=== PATIENT | female | born 1945 | race Caucasian/White ===

== ENCOUNTER → 2017-04-23 | Outpatient (CLI) | payer MEDICARE, OTHER ==
[~2017-04-23] MED LIST: CEPH250A PO; CLOP75 PO; ISOMON60ER PO; LISHYD1012 PO; NEBI5 PO; RANI150 PO; SIMV40 PO; SULTRIDS PO
== END ==
LOC: LAB EV 10:51
DX: N30.01 Acute cystitis with hematuria (principal)
CPT/HCPCS: 87086

== ENCOUNTER → 2019-02-06 | Outpatient (CLI) | payer MEDICARE, OTHER | END | disposition home or self-care (01) | LOC: LAB EV 13:43 → LAB SHORT 13:43 | DX: N39.0 Urinary tract infection, site not specified (principal) | CPT/HCPCS: 87086 ==

== ENCOUNTER → 2019-07-24 | Outpatient (CLI) | payer MEDICARE, OTHER | LOC: LAB SHORT 09:59 → LAB EV 09:59 | DX: N39.0 Urinary tract infection, site not specified (principal) | CPT/HCPCS: 87077; 87086; 87186 ==

== ENCOUNTER → 2020-01-13 | Outpatient (CLI) | payer MEDICARE, OTHER | END | disposition home or self-care (01) | LOC: LAB EV 15:19 → LAB SHORT 15:19 | DX: N12 Tubulo-interstitial nephritis, not specified as acute or chronic (principal) | CPT/HCPCS: 87077; 87086; 87186 ==

== ENCOUNTER → 2020-07-28 | Outpatient (CLI) | payer MEDICARE, OTHER | LOC: LAB SHORT 12:30 → LAB EV 12:30 | DX: N39.0 Urinary tract infection, site not specified (principal) | CPT/HCPCS: 87077; 87086; 87186 ==

== ENCOUNTER → 2020-10-15 | Outpatient (CLI) | payer MEDICARE, OTHER | END | disposition home or self-care (01) | LOC: LAB 11:03 → LAB SHORT 11:03 | DX: N39.0 Urinary tract infection, site not specified (principal) | CPT/HCPCS: 87077; 87086; 87186 ==

== ENCOUNTER → 2020-12-07 | Outpatient (CLI) | payer MEDICARE, OTHER | END | disposition home or self-care (01) | LOC: LAB 11:32 → LAB SHORT 11:32 | DX: N39.0 Urinary tract infection, site not specified (principal) | CPT/HCPCS: 87086 ==

== ENCOUNTER → 2020-12-25 | Outpatient (CLI) | payer MEDICARE, OTHER | LOC: LAB 09:38 → LAB SHORT 09:38 | DX: N39.0 Urinary tract infection, site not specified (principal); Z91.041 Radiographic dye allergy status | CPT/HCPCS: 87077; 87086; 87186 ==

== ENCOUNTER → 2021-01-16 | Outpatient (CLI) | payer MEDICARE, OTHER | END | disposition home or self-care (01) | LOC: LAB 10:18 → LAB SHORT 10:18 | DX: N39.0 Urinary tract infection, site not specified (principal) | CPT/HCPCS: 87077; 87086; 87186 ==

== ENCOUNTER → 2022-04-21 | Outpatient (CLI) | payer MEDICARE, OTHER | END | disposition home or self-care (01) | LOC: LAB 13:50 → LAB SHORT 13:50 | DX: N39.0 Urinary tract infection, site not specified (principal) | CPT/HCPCS: 87077; 87086; 87186 ==

== ENCOUNTER 2022-05-16 10:13 | Emergency (ER) | payer MEDICARE, OTHER ==
[~2022-05-16] VITALS: Ht 152.4 cm; Wt 52.2 kg
[2022-05-16 10:43] LABS: BASOPHILS ABSOLUTE AUTO 0.03 K/mm3 (0.00-0.23); BASOPHILS PERCENT AUTO 0 % (0-2); EOSINOPHILS ABSOLUTE AUTO 0.05 K/mm3 (0.00-0.68); EOSINOPHILS PERCENT AUTO 1 % (0-6); Hematocrit 40.4 % (33.0-51.0); Hemoglobin 13.7 g/dL (11.5-16.0); IMMATURE GRAN ABSOLUTE AUTO 0.02 K/mm3 (0.00-0.10); IMMATURE GRAN PERCENT AUTO 0 % (0-1); LYMPHOCYTES ABSOLUTE AUTO 1.83 K/mm3 (0.84-5.20); LYMPHOCYTES PERCENT AUTO 24 % (21-46); MONOCYTES ABSOLUTE AUTO 0.61 K/mm3 (0.16-1.47); MONOCYTES PERCENT AUTO 8 % (4-13); Mean Corpuscular HGB 31.3 pg (26.0-34.0); Mean Corpuscular HGB Conc 33.9 g/dL (31.5-36.5); Mean Corpuscular Volume 92 fL (80-100); Mean Platelet Volume 9.6 fL (9.1-12.4); NEUTROPHILS ABSOLUTE AUTO 4.98 K/mm3 (1.96-9.15); NEUTROPHILS PERCENT AUTO 66 % (41-73); Platelet Count 344 K/mm3 (150-400); RDW Coefficient Variation 13.5 % (11.7-14.2); RDW Standard Deviation 46.2 fL (35.1-46.3); Red Blood Cell Count 4.38 M/mm3 (3.80-5.20); White Blood Cell Count 7.52 K/mm3 (4.00-11.30)
[2022-05-16 10:56] LABS: Albumin, Blood 3.9 g/dL (3.4-5.0); Albumin/Globulin Ratio 1.2 (0.8-1.8); Bun/Creatinine Ratio 16.5 (12.0-20.0); Creatinine, Blood 0.73 mg/dL (0.40-1.00); Globulin, Blood 3.3 g/dL (2.2-4.0); Potassium, Blood 3.8 mmol/L (3.5-5.5); Total Protein, Blood 7.2 g/dL (6.4-8.2)
[2022-05-16] MEDS ORDERED: LOSARTAN-HCTZ1 EACH (10:56)
[2022-05-16 12:58] LABS: Source, Urine Voided
[2022-05-16 13:07] LABS: Blood, Urine 3+ (Neg); Glucose Qualitative, Urine Neg (Neg); Ketones, Urine 4+ (Neg); Leukocyte Esterase, Urine 2+ (Neg); Nitrite, Urine Pos (Neg); Protein, Urine 1+ (Neg); Urobilinogen, Urine 1+ (Normal); pH, Urine 6.5 (5.0-8.0)
[2022-05-16 13:19] LABS: Bilirubin, Urine 1+ (Neg)
[2022-05-16 13:20] LABS: Appearance, Urine Hazy (Clear); Color, Urine Yellow (P-Yellow)
[2022-05-16 13:21] LABS: Bacteria Mod /hpf; Hyaline Casts 0-2 /lpf (0-2); Mucus Mod (0-Heavy); Squamous Epithelial Cells Many /hpf (Few); Transitional Epithelial Cells Few /hpf (0-Rare)
== END 2022-05-16 14:07 | disposition home or self-care (01) ==
LOC: ER 10:13
PROVIDERS: Emergency Medicine
DX: R07.9 Chest pain, unspecified (principal); I25.10 Atherosclerotic heart disease of native coronary artery without angina pectoris; Z87.891 Personal history of nicotine dependence
CPT/HCPCS: 36415; 71046; 80053; 81001; 83690; 83880; 84484; 85025; 87086; 93005; 93010; 99285-25

== ENCOUNTER → 2022-05-18 | Outpatient (CLI) | payer MEDICARE, OTHER ==
[~2022-05-18] MED LIST changes: +LOSARTAN-HCTZ1 EACH
== END | disposition home or self-care (01) ==
LOC: LAB SHORT 17:51 → LAB 17:51
DX: N39.0 Urinary tract infection, site not specified (principal)
CPT/HCPCS: 87086

== ENCOUNTER → 2022-07-15 | Outpatient (CLI) | payer MEDICARE, OTHER | END | disposition home or self-care (01) | LOC: LAB 12:39 → LAB SHORT 12:39 | DX: R30.0 Dysuria (principal) | CPT/HCPCS: 87086 ==

== ENCOUNTER → 2022-11-01 | Outpatient (CLI) | payer MEDICARE, OTHER | LOC: LAB 14:56 → LAB SHORT 14:56 | DX: N39.0 Urinary tract infection, site not specified (principal) | CPT/HCPCS: 87086 ==

== ENCOUNTER → 2022-12-15 | Outpatient (CLI) | payer MEDICARE, OTHER ==
[2022-12-15 11:33] LABS: Source, Urine Clean Catch
[2022-12-15 11:49] LABS: Bacteria Few /hpf; Red Blood Cells, Urine 0-2 /hpf (0-2); Squamous Epithelial Cells Mod /hpf (Few); White Blood Cells, Urine 0-2 /hpf (0-5)
== END | disposition home or self-care (01) ==
LOC: LAB 11:32 → LAB SHORT 11:32
PROVIDERS: Family Medicine
DX: R30.0 Dysuria (principal)
CPT/HCPCS: 81015; 87086

== ENCOUNTER → 2023-02-01 | Outpatient (CLI) | payer MEDICARE, OTHER | LOC: LAB 18:30 → LAB SHORT 18:30 | DX: N39.0 Urinary tract infection, site not specified (principal) | CPT/HCPCS: 87086 ==

== ENCOUNTER → 2023-06-19 | Outpatient (CLI) | payer MEDICARE, OTHER | END | disposition home or self-care (01) | LOC: LAB 15:30 → LAB SHORT 15:30 | DX: N39.0 Urinary tract infection, site not specified (principal) | CPT/HCPCS: 87077; 87086; 87186 ==

== ENCOUNTER → 2023-06-27 | Outpatient (CLI) | payer MEDICARE, OTHER | END | disposition home or self-care (01) | LOC: LAB SHORT 11:14 | DX: N39.0 Urinary tract infection, site not specified (principal) | CPT/HCPCS: 87077; 87086; 87186 ==

== ENCOUNTER → 2023-10-01 | Outpatient (CLI) | payer MEDICARE, OTHER | END | disposition home or self-care (01) | LOC: LAB SHORT 11:15 → LAB 11:15 | DX: N39.0 Urinary tract infection, site not specified (principal) | CPT/HCPCS: 87077; 87086; 87186 ==

== ENCOUNTER → 2023-10-08 | Outpatient (CLI) | payer MEDICARE, OTHER ==
[2023-10-08 12:15] LABS: BASOPHILS ABSOLUTE AUTO 0.03 K/mm3 (0.00-0.23); BASOPHILS PERCENT AUTO 0 % (0-2); EOSINOPHILS ABSOLUTE AUTO 0.07 K/mm3 (0.00-0.68); EOSINOPHILS PERCENT AUTO 1 % (0-6); Hematocrit 32.2 % (33.0-51.0); IMMATURE GRAN ABSOLUTE AUTO 0.05 K/mm3 (0.00-0.10); IMMATURE GRAN PERCENT AUTO 1 % (0-1); LYMPHOCYTES ABSOLUTE AUTO 0.98 K/mm3 (0.84-5.20); LYMPHOCYTES PERCENT AUTO 9 % (21-46); MONOCYTES ABSOLUTE AUTO 0.95 K/mm3 (0.16-1.47); MONOCYTES PERCENT AUTO 9 % (4-13); Mean Corpuscular HGB Conc 34.2 g/dL (31.5-36.5); Mean Corpuscular Volume 94 fL (80-100); Mean Platelet Volume 8.7 fL (9.1-12.4); NEUTROPHILS ABSOLUTE AUTO 8.55 K/mm3 (1.96-9.15); NEUTROPHILS PERCENT AUTO 80 % (41-73); Platelet Count 325 K/mm3 (150-400); RDW Coefficient Variation 12.5 % (11.7-14.2); RDW Standard Deviation 42.5 fL (35.1-46.3); Red Blood Cell Count 3.44 M/mm3 (3.80-5.20); White Blood Cell Count 10.63 K/mm3 (4.00-11.30)
[2023-10-08 12:28] LABS: Albumin, Blood 3.1 g/dL (3.4-5.0); Albumin/Globulin Ratio 0.7 (0.8-1.8); Bilirubin, Total 0.6 mg/dL (0.1-1.0); Bun/Creatinine Ratio 19.3 (12.0-20.0); Calcium, Blood 9.3 mg/dL (8.5-10.1); Creatinine, Blood 0.83 mg/dL (0.40-1.00); Globulin, Blood 4.2 g/dL (2.2-4.0); Potassium, Blood 3.5 mmol/L (3.5-5.5); Total Protein, Blood 7.3 g/dL (6.4-8.2)
[2023-10-08 13:12] LABS: Source, Urine Clean Catch
[2023-10-08 13:47] LABS: Bacteria Many /hpf; Squamous Epithelial Cells Mod /hpf (Few)
== END | disposition home or self-care (01) ==
LOC: LAB 12:10 → LAB SHORT 12:10
PROVIDERS: Internal Medicine
DX: R10.32 Left lower quadrant pain (principal); N39.0 Urinary tract infection, site not specified
CPT/HCPCS: 80053; 81015; 85025

== ENCOUNTER → 2023-10-13 | Outpatient (CLI) | payer MEDICARE, OTHER | END | disposition home or self-care (01) | LOC: LAB 10:35 → LAB SHORT 10:35 | DX: N39.0 Urinary tract infection, site not specified (principal) | CPT/HCPCS: 87086 ==

== ENCOUNTER 2023-10-19 14:49 | Inpatient (IN) | payer MEDICARE, OTHER ==
[~2023-10-19] VITALS: Ht 152.4 cm; Wt 61.1 kg
[~2023-10-19 14:49] MED LIST changes: -LOSARTAN-HCTZ1 EACH; +LOSARTAN-HCTZ1 EACH PO
[2023-10-19] MEDS ORDERED: HYDCHL25 PO (15:24)
[2023-10-19] MEDS ORDERED: OMEPRAZOLE MAGN20 M1 PO (15:25)
[2023-10-19] MEDS ORDERED: GABA100 PO (15:26)
[2023-10-19] MEDS ORDERED: Metoclopramide HCl 5MG / ML 2ML Vial IV ONE (15:50)
[2023-10-19 15:51] LABS: Albumin, Blood 1.9 g/dL (3.4-5.0); Albumin/Globulin Ratio 0.4 (0.8-1.8); Bilirubin, Total 0.6 mg/dL (0.1-1.0); Bun/Creatinine Ratio 22.4 (12.0-20.0); Calcium, Blood 9.4 mg/dL (8.5-10.1); Creatinine, Blood 2.01 mg/dL (0.40-1.00); Globulin, Blood 4.3 g/dL (2.2-4.0); Potassium, Blood 3.7 mmol/L (3.5-5.5); Total Protein, Blood 6.2 g/dL (6.4-8.2)
[2023-10-19] MEDS ORDERED: DiphenhydrAMINE HCl 50 MG/ML 1ML Vial IV ONE (16:35)
[2023-10-19 17:04] LABS: Hemoglobin 12.3 g/dL (11.5-16.0); Mean Corpuscular HGB 30.8 pg (26.0-34.0); Mean Corpuscular HGB Conc 33.2 g/dL (31.5-36.5); Mean Corpuscular Volume 93 fL (80-100); Mean Platelet Volume 8.7 fL (9.1-12.4); Platelet Count 588 K/mm3 (150-400); RDW Coefficient Variation 13.1 % (11.7-14.2); RDW Standard Deviation 44.3 fL (35.1-46.3); Red Blood Cell Count 3.99 M/mm3 (3.80-5.20); White Blood Cell Count 17.26 K/mm3 (4.00-11.30)
[2023-10-19 17:35] LABS: Source, Urine Clean Catch
[2023-10-19 17:43] LABS: BAND PERCENT MAN 32 % (0-8); BASOPHILS PERCENT MAN 0 % (0-2); EOSINOPHILS PERCENT MAN 0 % (0-6); LYMPHOCYTES ABSOLUTE MAN 1.55 K/mm3 (0.84-5.20); LYMPHOCYTES PERCENT MAN 9 % (21-46); METAMYELOCYTE ABSOLUTE MAN 0.17 K/mm3 (0.00-0.00); METAMYELOCYTE PERCENT MAN 1 % (0-0); MONOCYTES ABSOLUTE MAN 1.38 K/mm3 (0.16-1.47); MONOCYTES PERCENT MAN 8 % (4-13); MYELOCYTE ABSOLUTE MAN 0.69 K/mm3 (0.00-0.00); MYELOCYTE PERCENT MAN 4 % (0-0); NEUTROPHILS ABSOLUTE MAN 13.46 K/mm3 (1.96-9.15); SEG NEUTROPHILS PERCENT MAN 46 % (41-73); TOTAL CELLS COUNTED 100
[2023-10-19 17:53] LABS: Appearance, Urine Hazy (Clear); Bilirubin, Urine Neg (Neg); Blood, Urine 5+ (Neg); Color, Urine Yellow (P-Yellow); Glucose Qualitative, Urine Neg (Neg); Ketones, Urine Neg (Neg); Leukocyte Esterase, Urine 1+ (Neg); Nitrite, Urine Neg (Neg); Protein, Urine 3+ (Neg); Urobilinogen, Urine NORM (Normal)
[2023-10-19 18:00] LABS: Bacteria Many /hpf; Renal Epithelial Rare /hpf (0-Rare); Squamous Epithelial Cells Many /hpf (Few)
[2023-10-19 18:01] LABS: Hyaline Casts 0-2 /lpf (0-2); Yeast/Fungi Urine Few /hpf
[2023-10-19] MEDS ORDERED: HYDROmorphone HCl/Pf 1MG SYR IV PRN (18:10)
[2023-10-19] MEDS ORDERED: Piperacillin/Tazobactam Sod 3.375 GM in NS 100 ML IV ONE (18:10)
[2023-10-19] MEDS ORDERED: Pantoprazole Sodium 40 MG Injection IV ONE (18:25)
[2023-10-19 18:45] VITALS: BP 94/66
[2023-10-19] MEDS ORDERED: NS 1,000 ML IV SCH (18:55)
[2023-10-19] MEDS ORDERED: Lactated Ringer's 1,000 ML IV ONE ×2 (19:10→19:59)
[2023-10-19] MEDS ORDERED: Bupivacaine 0.5% HCl 5 MG/ML 30MLVIAL ONE (19:29)
[2023-10-19] MEDS ORDERED: FentaNYL Citrate 50 MCG/ML 2 ML Injection ONE (20:04)
[2023-10-19] MEDS ORDERED: propofoL 20 ML IV ONE (20:04)
[2023-10-19] MEDS ORDERED: Phenylephrine HCl 100 MCG/ML-NS 10MLSYR (1MG/10ML) ONE ×3 (20:05→21:09)
[2023-10-19] MEDS ORDERED: Rocuronium Bromide 10 MG/ML 5ML Injection IV ONE ×2 (20:05→21:36)
[2023-10-19] MEDS ORDERED: Phenylephrine HCl 10mg/ml 1 ml Vial ONE (21:03)
[2023-10-19] MEDS ORDERED: Dexamethasone Sod Phos 10 MG/ML 1ML VIAL ONE (23:34)
[2023-10-19] MEDS ORDERED: Ondansetron HCl 2 MG / ML 2ML Vial ONE (23:34)
[2023-10-19] MEDS ORDERED: Midazolam HCl 1MG / ML 2ML Vial ONE (23:36)
[2023-10-20] VITALS (93 sets, daily range): BP systolic 78–145; BP diastolic 60–99
[2023-10-20] MEDS ORDERED: Vasopressin 20 UNITS in NS 100 ML IV SCH (00:15)
[2023-10-20] MEDS ORDERED: propofoL 100 ML IV SCH ×2 (00:20→00:35)
[2023-10-20] MEDS ORDERED: Lactated Ringer's 1,000 ML IV SCH (00:50)
[2023-10-20] MEDS ORDERED: FentaNYL Citrate 50 MCG/ML 2 ML Injection IV PRN ×2 (00:50→15:40)
[2023-10-20] MEDS ORDERED: HYDROCODONE-AC1 EA19 PO (01:01)
[2023-10-20] MEDS ORDERED: Cetylpyridinium Chloride 1 EA MISC MT SCH ×2 (01:05→08:40)
[2023-10-20] MEDS ORDERED: Folic Acid 1 MG in NS 50 ML IV SCH (02:00)
[2023-10-20] MEDS ORDERED: Thiamine HCl 100 MG in NS 50 ML IV SCH (02:00)
--- NOTE | 2023-10-20 02:00 | NUR ---
PT ARRIVES TO ROOM ICU 8 FROM OR AT 0005 S/P ABDOMINAL SURGERY FOR PERFORATED BOWEL. PT HAS NEW COLOSTOMY, PIKO DRESSING, AND JUSTICE DRAIN TO ABDOMEN. BEDSIDE REPORT RECEIVED. PT'S DAUGHTER BROUGHT TO ROOM AFTER PT WAS SETTLED. TEACHING DONE ON PT'S STATUS, BEING INTUBATED, CURRENT STATUS, AND POST OP CONDITION. ALLOWED FOR QUESTIONS. PT'S DAUGHTER PARTICIPATES IN ADMISSION INTERVIEW. DAUGHTER VOICES THAT SHE FEELS THAT SHE UNDERSTANDS PT'S POOR PROGNOSIS AND THAT FAMILY WILL BE COMING UP FROM [place]. DOES STATE THAT PT IS PRIMARY CAREGIVER FOR PT'S THAT HAS DEMENTIA. FAMILY WILL WORK ON GETTING CARE ARRANGE FOR . WILL REVIEW CHART AND PLAN OF CARE FOR THIS PT.
[2023-10-20] MEDS ORDERED: NS 250 ML IV PRN (02:20)
[2023-10-20 02:40] LABS: Base Excess Venous 2.7 mmol/L; PCO2 Venous 46.9 mmHg (38-42); pH Blood Venous 7.38 (7.34-7.37)
[2023-10-20 02:44] LABS: Hematocrit 33.2 % (33.0-51.0); Hemoglobin 11.4 g/dL (11.5-16.0); Mean Corpuscular HGB 31.7 pg (26.0-34.0); Mean Corpuscular HGB Conc 34.3 g/dL (31.5-36.5); Mean Corpuscular Volume 92 fL (80-100); Mean Platelet Volume 8.5 fL (9.1-12.4); Platelet Count 485 K/mm3 (150-400); RDW Coefficient Variation 13.2 % (11.7-14.2); RDW Standard Deviation 44.9 fL (35.1-46.3); White Blood Cell Count 10.23 K/mm3 (4.00-11.30)
[2023-10-20 03:05] LABS: Magnesium, Blood 1.9 mg/dL (1.6-2.4)
[2023-10-20 03:06] LABS: Albumin, Blood 1.2 g/dL (3.4-5.0); Albumin/Globulin Ratio 0.4 (0.8-1.8); Bilirubin, Total 0.5 mg/dL (0.1-1.0); Bun/Creatinine Ratio 30.5 (12.0-20.0); Calcium, Blood 7.9 mg/dL (8.5-10.1); Creatinine, Blood 1.54 mg/dL (0.40-1.00); Total Protein, Blood 4.2 g/dL (6.4-8.2)
[2023-10-20 03:48] LABS: BAND PERCENT MAN 48 % (0-8); BASOPHILS PERCENT MAN 0 % (0-2); EOSINOPHILS PERCENT MAN 0 % (0-6); LYMPHOCYTES % ATYPICAL MANUAL 1 % (0-0); LYMPHOCYTES ABSOLUTE MAN 1.02 K/mm3 (0.84-5.20); LYMPHOCYTES PERCENT MAN 9 % (21-46); METAMYELOCYTE ABSOLUTE MAN 0.71 K/mm3 (0.00-0.00); METAMYELOCYTE PERCENT MAN 7 % (0-0); MONOCYTES PERCENT MAN 4 % (4-13); MYELOCYTE PERCENT MAN 3 % (0-0); NEUTROPHILS ABSOLUTE MAN 7.77 K/mm3 (1.96-9.15); SEG NEUTROPHILS PERCENT MAN 28 % (41-73); TOTAL CELLS COUNTED 100
[2023-10-20] MEDS ORDERED: Hydrogen Peroxide 1.5 % Solution MT SCH (04:00)
--- NOTE | 2023-10-20 05:53 | NUR ---
DAUGHTER HAS GONE HOME FOR THE NIGHT. PT HAS REMAINED OFF SEDATION, AND HAS BEEN MEDICATED ONCE WITH 25 MCG'S FENTANYL FOR ASSUMED PAIN WITH TURNS. PT MOSTLY RIDES COMPLIANT WITH VENT. ONLY WITH TURNS DOES SHE OVERBREATH VENT. THIS OCCURS FOR ONLY SHORT PERIOD. JUSTICE DRAINS 60 ML SEROUSAINGEOUS DRAINAGE. NGT TO LIWS. THICK DARK OUTPUT. DR SCHILLING HAS REQUESTED THAT THE NGT NO BE CHANGED OUT FOR OGT AT THIS TIME. WILL CONTINUE TO MONITOR PT, AND WILL REPORT OFF TO ONCOMING RN.
[2023-10-20] MEDS ORDERED: Pantoprazole Sodium 40 MG Injection IV SCH (06:00)
[2023-10-20] MEDS ORDERED: Piperacillin/Tazobactam Sod 4.5 GM in NS 100 ML IV SCH (09:00)
--- NOTE | 2023-10-20 10:50 | NUR ---
Spiritual Care Consult ordered by Dr Kelsi Bowens Pt. is resting and mostly not responsive. Pts. Spouse and daughter are both in the ICU waiting room. The daughter was working with our care coordinators, and this manufacturing executive met with the Spouse. The spouse displayed some evidence of mild dementia, but is overall pleasant. This manufacturing executive facilitated a life review with the spouse who was able to verbalize their life together. Through theraputic listening and calming presence a measure of rapport is established. When Pts. daughter entered the conversation, she verbalized some of the circumstances that brought the Pt. into the hospital. Daughter verbalized that the Pt. was raised in a taoism tradition, but the Pt. and spouse did not practice their eliz over the years. This manufacturing executive verbalized our desire to care and support the family. Both daughter and spouse verbalized gratitude for the spiritual care visit.
[2023-10-20] MEDS ORDERED: ONDA4ODT MM (15:04)
[2023-10-20] MEDS ORDERED: METR500 PO (15:05)
[2023-10-20] MEDS ORDERED: CEFP200 PO (15:05)
[2023-10-20] MEDS ORDERED: Isosorbide Mono30 MG PO (15:06)
[2023-10-20] MEDS ORDERED: ACET500 PO (15:07)
[2023-10-20] MEDS ORDERED: ADVIL PM (15:07)
[2023-10-20] MEDS ORDERED: POTASSIUM GLUCONATE (15:08)
[2023-10-20] MEDS ORDERED: Aspir 8181 MG PO (15:08)
[2023-10-20] MEDS ORDERED: [UNRECOGNIZED DRUG - OTHER] PO (15:09)
[2023-10-20] MEDS ORDERED: NITR.4SL SL (15:09)
--- NOTE | 2023-10-20 16:06 | NUR ---
SUPPORTIVE VISIT FOR FAMILY MEMEBERS GENTLE EDUCATION WITH PT'S SPOUSE, MICHELLE RE: PT'S CURRENT CARE NEEDS. ASSISTED SPOUSE WITH HOLDING PT'S HAND AND ENCOURAGED FAMILY TO TALK TO PATIENT. DTRPAULA APPEARS TO HAVE A GRASP ON PT'S PROGNOSIS. PC CARE TO REMAIN AVAILABLE NEEDED.
--- NOTE | 2023-10-20 17:44 | NUR ---
SHIFT SUMMARY PATIENT REMAINS INTUBATED, SEDATION STARTED THIS SHIFT TO ASSIST WITH PAIN CONTROL ON TOP OF FENTANYL INCREASED TO 25-50 MCG Q1H PRN. PROPOFOL @ 10 MCG/KG/MIN, LEVOPHED @ 5MCG/MIN, LR @ 150ML/HR. PATIENT ATTEMPTS TO OPEN EYES AND CAN NOD HEAD "YES/NO" TO SIMPLE QUESTIONS. LUNG SOUNDS ARE CLEAR AND VENT SETTINGS ARE AC/VC 16/310/5/35%. SPO2 MID TO HIGH 90'S. ETCO2 HIGH 20'S. BP STABLE WITH MAPS GREATER THAN 65. SHARLA DRESSINGS REMAINS C/D/I. MINIMAL OUTPUT FROM JUSTICE DRAIN. MINIMAL OUTPUT FROM COLOSTOMY. DAUGTHER AND GRANDDAUGHTER AT BEDSIDE T/O SHIFT. NO OTHER CHANGES THIS SHIFT.
[2023-10-20] MEDS ORDERED: Atorvastatin 10 MG Tab PO SCH (18:00)
--- NOTE | 2023-10-20 19:36 | NUR ---
ASSUMED CARE OF PT AT 1900. REPORT RECEIVED AT BEDSIDE. PT PRESENTS IN BED. INTUBATED - AC 16, Tv 310, 35 PERCENT FIO2, PEEP 5.0. PT MAINTAINS SATURATION > 90 PERCENT. PT'S DAUGHTER PAULA IN ROOM. PARTICIPATES IN BEDSIDE REPORT. PT ON AT PROPOFOL AT 10 MCG'S/KG/MIN. PUPILS CHECKED WHICH REVEALS APPROX 2 MM PERRLA. WHEN VERBALLY ADDRESSING PT, NO NOTEABLE RESPONSE. PT HAS, PER REPORT, RESPONDED SOME TO CUES. DAUGHTER STATES THAT WHEN SHE HAD FAMILY ON TELEPHONE WITH SPEAKER PHONE, PT DID RESPOND TO VOICE. NO S/S PAIN OR DISTRESS. COLOSTOMY WITHOUT DRAINAGE, JUSTICE WITH SERRSONGEOUS DRAINAGE. PIKO DRESSING INTACT. WILL REVIEW CHART AND PLAN OF CARE FOR THIS PT.
--- NOTE | 2023-10-20 21:52 | NUR ---
PT MEDICATED WITH 25 MCG'S FENTANYL. PT WAS ABLE TO NOD HER HEAD 'YES' TO IF SHE WAS HAVING PAIN. AFTER MEDICATION, PT RELAXED AND COMPLIANT WITH VENT. LEVOPHED HAS BEEN DECREASED TO 2 MCG'S. WILL PROCEDE WITH PLAN TO WEAN TO OFF ABLE.
[2023-10-21] VITALS (45 sets, daily range): BP systolic 98–146; BP diastolic 58–90
--- NOTE | 2023-10-21 05:50 | NUR ---
SPONTANEOUS BREATHING TRIAL DONE THIS MORNING BY DR SIMMS. PT WAS ABLE TO WEAKLY FOLLOW SOME COMMANDS. WOULD NOD HER HEAD 'YES' AND 'NO' TO QUESTIONS. DR SIMMS DID ASK IF PT FELT SHE WAS READY TO BE EXTUBATED. PT NODS HER HEAD 'NO' TO THIS. PT REMAINS WITH SATURATION > 90 PERCENT. LEVOPHED HAS BEEN TITRATED TO OFF. PT MAINTAINS MAP AT > 65. WILL CONTINUE TO MONITOR AND WILL REPORT OFF TO ONCOMING RN.
[2023-10-21 07:00] LABS: Hematocrit 25.1 % (33.0-51.0); Hemoglobin 8.6 g/dL (11.5-16.0); Mean Corpuscular HGB 31.3 pg (26.0-34.0); Mean Corpuscular HGB Conc 34.3 g/dL (31.5-36.5); Mean Corpuscular Volume 91 fL (80-100); Mean Platelet Volume 8.9 fL (9.1-12.4); Platelet Count 286 K/mm3 (150-400); RDW Coefficient Variation 13.5 % (11.7-14.2); RDW Standard Deviation 44.4 fL (35.1-46.3); Red Blood Cell Count 2.75 M/mm3 (3.80-5.20); White Blood Cell Count 21.49 K/mm3 (4.00-11.30)
[2023-10-21 07:19] LABS: Bun/Creatinine Ratio 25.1 (12.0-20.0); Calcium, Blood 7.1 mg/dL (8.5-10.1); Creatinine, Blood 1.91 mg/dL (0.40-1.00); Potassium, Blood 3.5 mmol/L (3.5-5.5)
[2023-10-21 07:43] LABS: BAND PERCENT MAN 29 % (0-8); BASOPHILS PERCENT MAN 0 % (0-2); EOSINOPHILS PERCENT MAN 0 % (0-6); LYMPHOCYTES ABSOLUTE MAN 0.42 K/mm3 (0.84-5.20); LYMPHOCYTES PERCENT MAN 2 % (21-46); METAMYELOCYTE ABSOLUTE MAN 0.21 K/mm3 (0.00-0.00); METAMYELOCYTE PERCENT MAN 1 % (0-0); MONOCYTES ABSOLUTE MAN 0.21 K/mm3 (0.16-1.47); MONOCYTES PERCENT MAN 1 % (4-13); NEUTROPHILS ABSOLUTE MAN 20.63 K/mm3 (1.96-9.15); SEG NEUTROPHILS PERCENT MAN 67 % (41-73); TOTAL CELLS COUNTED 100
[2023-10-21] MEDS ORDERED: LORazepam 2 MG/ML 1ML Injection IV PRN (11:00)
[2023-10-21] MEDS ORDERED: Potassium Chl 20MEQ/Water100ML 100 ML IV STA (11:12)
--- NOTE | 2023-10-21 11:45 | NUR ---
"Spiritual Care Visit | Family Support Family of Pt is sitting in the hallway when this substance abuse nurse arrived. After introductions this substance abuse nurse went into the ICU lounge and had a lengthy visit with the Pts. spouse. Though the spouse displayed evidence of memory deficits, this substance abuse nurse gave him a great deal of time to formulate his thoughts, and share memories. Listen with patience, empathy, and a calming interest. Pt. displays evidence of having a vivid memory of when the Pt. collapsed at home. Considered matters of eliz and belief, and SPouse verbalized the role his grandmother had at instilling eliz in the family. Prayed with the Spouse. Spouse verbalized gratitude for the spiritual care visit, and welcomed this substance abuse nurse to visit again. Family in the hallway also verbalizedgratitude for the time spent with Pts. spouse."
--- NOTE | 2023-10-21 17:49 | NUR ---
SUMMARY PT INTUBATED, LIGHT SEDATION. ABLE TO NOD YES AND NO TO QUESTIONS APPROPRIATELY AND FOLLOWS COMMANDS. PT HAS BRUISE TO R SIDE OF FOREHEAD FROM A FALL AT HOME PRIOR TO ADMIT. CT HEAD DONE TODAY AND RESULTS GIVEN TO FAMILY BY DR. WILSON. PT WAS TAKEN OFF SEDATION FOR SBT, DID NOT PASS. PLACED BACK ON SEDATION. NG TO LIS WITH GREEN BILE OUTPUT. JUSTICE DRAIN TO R ABD WITH SEROSANG DRAINAGE. NO OUTPUT FROM COLOSTOMY AND SHARLA VAC STILL INTACT. OFF LEVOPHED ALL DAY. NO OTHER CHANGES.
--- NOTE | 2023-10-21 19:44 | NUR ---
ASSUMED CARE OF PT AT 1900. REPORT RECEIVED AT BEDSIDE. PT'S FAMILY AT BEDSIDE, AND PARTICIPATES IN BEDSIDE REPORT. PT PRESENTS IN BED. RESTING. DOES NO OPEN EYES DURING REPORT. NO APPARENT DISTRESS. WILL REVIEW CHART AND PLAN OF CARE FOR THIS PT.
[2023-10-22] VITALS (72 sets, daily range): BP systolic 74–152; BP diastolic 50–77
--- NOTE | 2023-10-22 02:49 | NUR ---
HAVE BEEN TITRATING DOWN LEVOPHED. VASOPRESSIN HAS BEEN STOPPED. PT MAP > 65 CONSISTENTLY. FULL BEDBATH WAS DONE. PT TOLERATES THIS WELL.
[2023-10-22 05:41] LABS: Hematocrit 25.5 % (33.0-51.0); Hemoglobin 8.5 g/dL (11.5-16.0); Mean Corpuscular HGB 31.3 pg (26.0-34.0); Mean Corpuscular HGB Conc 33.3 g/dL (31.5-36.5); Mean Corpuscular Volume 94 fL (80-100); Mean Platelet Volume 8.7 fL (9.1-12.4); Platelet Count 242 K/mm3 (150-400); RDW Coefficient Variation 13.7 % (11.7-14.2); RDW Standard Deviation 46.5 fL (35.1-46.3); Red Blood Cell Count 2.72 M/mm3 (3.80-5.20)
[2023-10-22 06:10] LABS: BAND PERCENT MAN 6 % (0-8); BASOPHILS PERCENT MAN 0 % (0-2); EOSINOPHILS PERCENT MAN 0 % (0-6); LYMPHOCYTES ABSOLUTE MAN 1.33 K/mm3 (0.84-5.20); LYMPHOCYTES PERCENT MAN 5 % (21-46); MONOCYTES PERCENT MAN 3 % (4-13); MYELOCYTE ABSOLUTE MAN 0.53 K/mm3 (0.00-0.00); MYELOCYTE PERCENT MAN 2 % (0-0); NEUTROPHILS ABSOLUTE MAN 23.76 K/mm3 (1.96-9.15); PLASMA CELL ABSOLUTE MAN 0.26 K/mm3 (0.00-0.00); PLASMA CELLS PERCENT MAN 1 % (0-0); SEG NEUTROPHILS PERCENT MAN 83 % (41-73); TOTAL CELLS COUNTED 100
[2023-10-22 06:14] LABS: Bun/Creatinine Ratio 27.4 (12.0-20.0); Calcium, Blood 7.4 mg/dL (8.5-10.1); Creatinine, Blood 1.64 mg/dL (0.40-1.00); Magnesium, Blood 2.4 mg/dL (1.6-2.4); Phosphorus, Blood 3.8 mg/dL (2.5-4.9); Potassium, Blood 3.1 mmol/L (3.5-5.5)
[2023-10-22] MEDS ORDERED: Potassium Chl 20MEQ/Water100ML 100 ML IV SCH (06:35)
[2023-10-22] MEDS ORDERED: Piperacillin/Tazobactam Sod 4.5 GM in NS 100 ML IV SCH (09:00)
--- NOTE | 2023-10-22 17:43 | NUR ---
SHIFT SUMMARY PT REMAINS INTUBATED AND SEDATED. PT WITH OVER 6 HOURS ON SBT WITH SEDATION OFF THIS SHIFT. PT SWITCHED BACK TO AC 16, TV 310, PEEP 5, FIO2 35% THIS AFTERNOON. PT HAS REMAINED ALERT, AND ABLE TO NOD HEAD APPROPRIATELY TO QUESTIONS. PT MED WITH FENTANYL PRN FOR ABD PAIN THIS SHIFT. CENTRAL LINE TO RSC C/D/I WITH NS INFUSING TKO AND PROPOFOL AT 25 MCG/KG/MIN. NGT REMAINS IN PLACE. TF STARTED PER DR SCHILLING THIS MORNING. PT WITH MIDLINE ABD INCISION WITH SHARLA VAC C/D/I. JUSTICE TO RIGHT ABD WITH SMALL AMOUNT OF PINK/CLEAR OUTPUT NOTED. COLOSTOMY TO L ABD PINK AND WITH BROWN, FIRM, PELLETS OF STOOL OUTPUT NOTED. PACE REMAINS IN PLACE WITH MINIMAL AMOUNT OF YELLOW URINE OUTPUT NOTED. SBW RESTRAINTS REMAIN IN PLACE. VITAL SIGNS STABLE. MULTIPLE FAMILY MEMBERS IN AND OUT THIS SHIFT. WILL CONTINUE TO MONITOR AND REPORT OFF TO ONCOMING RN.
[2023-10-22] MEDS ORDERED: Atorvastatin 10 MG Tab PT SCH (18:00)
[2023-10-23] VITALS (42 sets, daily range): BP systolic 108–140; BP diastolic 60–93
[2023-10-23 05:07] LABS: Hematocrit 24.9 % (33.0-51.0); Hemoglobin 8.3 g/dL (11.5-16.0); Mean Corpuscular HGB 31.1 pg (26.0-34.0); Mean Corpuscular HGB Conc 33.3 g/dL (31.5-36.5); Mean Corpuscular Volume 93 fL (80-100); Platelet Count 237 K/mm3 (150-400); RDW Coefficient Variation 13.8 % (11.7-14.2); RDW Standard Deviation 47.3 fL (35.1-46.3); Red Blood Cell Count 2.67 M/mm3 (3.80-5.20); White Blood Cell Count 24.92 K/mm3 (4.00-11.30)
[2023-10-23 05:39] LABS: Albumin, Blood 1.1 g/dL (3.4-5.0); Anion Gap 11 mmol/L (3-11); Blood Urea Nitrogen 37 mg/dL (8-24); Bun/Creatinine Ratio 35.6 (12.0-20.0); CO2, Blood 24 mmol/L (21-32); Calcium, Blood 7.3 mg/dL (8.5-10.1); Chloride, Blood 106 mmol/L (98-108); Creatinine, Blood 1.04 mg/dL (0.40-1.00); Glomerular Filtration Rate 55 (60-); Glucose, Blood 129 mg/dL (70-99); Magnesium, Blood 2.4 mg/dL (1.6-2.4); Phosphorus, Blood 2.3 mg/dL (2.5-4.9); Potassium, Blood 3.3 mmol/L (3.5-5.5); Sodium, Blood 138 mmol/L (136-145)
[2023-10-23 05:42] LABS: BAND PERCENT MAN 2 % (0-8); BASOPHILS PERCENT MAN 0 % (0-2); EOSINOPHILS PERCENT MAN 0 % (0-6); LYMPHOCYTES ABSOLUTE MAN 1.49 K/mm3 (0.84-5.20); LYMPHOCYTES PERCENT MAN 6 % (21-46); MONOCYTES ABSOLUTE MAN 0.74 K/mm3 (0.16-1.47); MONOCYTES PERCENT MAN 3 % (4-13); MYELOCYTE ABSOLUTE MAN 0.24 K/mm3 (0.00-0.00); MYELOCYTE PERCENT MAN 1 % (0-0); NEUTROPHILS ABSOLUTE MAN 22.17 K/mm3 (1.96-9.15); PLASMA CELL ABSOLUTE MAN 0.24 K/mm3 (0.00-0.00); PLASMA CELLS PERCENT MAN 1 % (0-0); SEG NEUTROPHILS PERCENT MAN 87 % (41-73); TOTAL CELLS COUNTED 100
[2023-10-23] MEDS ORDERED: Potassium Phosphate Dibasic 20 MM in Dextrose 5% 500 ML IV ONE (06:25)
--- NOTE | 2023-10-23 06:31 | NUR ---
SHIFT SUMMERY PT HAS HAD NO ACUTE CHANGES SINCE EXTUBATION. VS STABLE AT THIS TIME. BIPAP SETTING UNCHANGED
--- NOTE | 2023-10-23 06:43 | NUR ---
SHIFT SUMMERY PT HAS HAD NO ACUTE CHANGES OVERNIGHT. PROPOFOL INFUSING FOR SEDATION-SEE FLOWSHEET. PT HAS BEEN AFEBRILE. COLOSTOMY STOMA BEEFY RED WITH LARGE AMOUNT OF FORMED BROWN STOOL OVERNIGHT. ABD DRESSING C/D/I. ETT INTACT AND PATENT TO THE VENT. JUSTICE DRAIN W/NO MEASURABLE OUTPUT. TF INFUSING W/OUT DIFFICULTY. SR ON THE SUIT ATTENDANT. BP WNL.
[2023-10-23] MEDS ORDERED: Furosemide 10 MG/ML 4ML Vial IV ONE (08:30)
[2023-10-23] MEDS ORDERED: Multivitamins-Minerals Liquid 15 ML Oral Syringe PT SCH (12:50)
[2023-10-23] MEDS ORDERED: Potassium Chloride 20 MEQ TabCR PO ONE (13:00)
[2023-10-23] MEDS ORDERED: HYDROmorphone HCl/Pf 1MG SYR IV PRN (15:10)
[2023-10-23 15:21] LABS: Magnesium, Blood 2.2 mg/dL (1.6-2.4); Phosphorus, Blood 3.6 mg/dL (2.5-4.9)
[2023-10-23] MEDS ORDERED: Potassium Chl 20MEQ/Water100ML 100 ML IV SCH (16:50)
--- NOTE | 2023-10-23 17:06 | NUR ---
SHIFT SUMMARY PT EXTUBATED THIS SHIFT AFTER SUCCESSFUL SBT THIS MORNING. PT INITIALLY PLACED ON 8L O2 NC, THEN TITRATED DOWN TO 4L O2 NC THIS AFTERNOON. PT HAS CONTINUED TO COMPLAIN OF ABD PAIN THROUGHOUT THE SHIFT. PT MED WITH FENTANYL PRN PER EMAR AND DILAUDID PER EMAR THIS AFTERNOON. PT WITH GREATER RELIEF FROM DILAUDID THIS AFTERNOON. PT IS ALERT AND ORIENTED WHEN AWAKE. PT FOLLOWS COMMANDS APPROPRIATELY. NGT REMAINS IN PLACE WITH TF INFUSING AT GOAL RATE. CENTRAL LINE TO RIJ C/D/I WITH NS INFUSING TKO. MIDLINE ABD INCISION WITH SHARLA REMAINS C/D/I. JUSTICE DRAIN TO RIGHT ABDOMEN WITH SMALL AMOUNT OF SEROUSANGUINEOUS OUTPUT NOTED. COLOSTOMY TO LEFT ABD PINK AND WITH INCREASING AMOUNT OF SOFT STOOL OUTPUT NOTED. PACE REMAIN IN PLACE WITH LARGE AMOUNT OF CLEAR YELLOW OUTPUT S/P LASIX THIS SHIFT. VITAL SIGNS REMAIN STABLE. MULTIPLE FAMILY MEMBERS IN AND OUT THROUGHOUT THIS SHIFT. WILL CONTINUE TO MONITOR AND REPORT OFF TO ONCOMING RN.
[2023-10-23] MEDS ORDERED: LORazepam 2 MG/ML 1ML Injection IV PRN (18:35)
--- NOTE | 2023-10-23 20:52 | NUR ---
ASSUMED CARE OF PATIENT AT 1900. REPORT RECEIVED FROM RENETTA BUCKLEY. PT SLEEPING UPRIGHT IN BED. ON 4LPM O2 VIA NC WITH SATURATION OF 98%. NGT IN PLACE. SHARLA TO MIDLINE IS C/D/I, JUSTICE DRAIN TO R ABDOMEN WITH SMALL AMOUNT OF SEROSANGINOUS OUTPUT. COLOSTOMY TO LEFT ABD VISUALIZED WITH SOFT STOOL OUTPUT. PACE IN PLACE DRAINING CLEAR YELLOW URINE TO GRAVITY. RIJ VISUALIZED, DRESSING C/D/I. INFUSING TKO. NO ACUTE NEEDS IDENTIFIED AT THIS TIME. SEE SHIFT ASSESSMENT FOR FULL DETAILS.
[2023-10-23 21:47] LABS: Magnesium, Blood 2.1 mg/dL (1.6-2.4)
--- NOTE | 2023-10-23 22:44 | NUR ---
VERBAL FROM PT'S DAUGHTER, PAULA, TO REINTUBATE AT APPROXIMATELY 2230 PT O2 SATURATED TO LOW 80'S. ENTERED PT ROOM AND PERFORMED SUCTION, ENCOURAGED PT TO COUGH, AND TAKE DEEP BREATHS TO RECEIVE OXYGEN VIA NC. NON REBREATHER PLACED AT 15 LPM WITH INCREASE IN O2 TO LOW 90'S. SPOKE WITH PT'S DAUGHTER WHO STATED THAT SHE IS OKAY WITH REINTUBATION IF NECESSARY. UPDATED DR. ALVES WHO STATED TO TRY BIPAP FIRST. RT AT BESIDE, ABLE TO HAVE SUCCESSFUL SUCTION AND IMPROVEMENT IN 02 SATURATION TO 92% ON 8LPM VIA OXIMASK. DAUGHTER PAULA UPDATED AGAIN AND CONTINUED TO EXPRESS THAT SHE IS OKAY WITH RE-INTUBATION NECESSARY.
[2023-10-24] VITALS (35 sets, daily range): BP systolic 110–157; BP diastolic 56–93
[2023-10-24 04:21] LABS: Hematocrit 24.6 % (33.0-51.0); Hemoglobin 8.4 g/dL (11.5-16.0); Mean Corpuscular HGB 31.6 pg (26.0-34.0); Mean Corpuscular HGB Conc 34.1 g/dL (31.5-36.5); Mean Corpuscular Volume 93 fL (80-100); Mean Platelet Volume 9.7 fL (9.1-12.4); Platelet Count 258 K/mm3 (150-400); RDW Coefficient Variation 13.8 % (11.7-14.2); RDW Standard Deviation 46.8 fL (35.1-46.3); Red Blood Cell Count 2.66 M/mm3 (3.80-5.20); White Blood Cell Count 26.14 K/mm3 (4.00-11.30)
[2023-10-24 04:40] LABS: Albumin, Blood 1.2 g/dL (3.4-5.0); Albumin/Globulin Ratio 0.3 (0.8-1.8); Bilirubin, Total 0.6 mg/dL (0.1-1.0); Bun/Creatinine Ratio 35.9 (12.0-20.0); Calcium, Blood 7.4 mg/dL (8.5-10.1); Creatinine, Blood 0.81 mg/dL (0.40-1.00); Globulin, Blood 3.7 g/dL (2.2-4.0); Magnesium, Blood 2.1 mg/dL (1.6-2.4); Phosphorus, Blood 2.1 mg/dL (2.5-4.9); Potassium, Blood 3.6 mmol/L (3.5-5.5); Total Protein, Blood 4.9 g/dL (6.4-8.2)
--- NOTE | 2023-10-24 05:26 | NUR ---
SHIFT SUMMARY PT MEDICATED WITH ATIVAN ON DAY SHIFT 10/23/23 AND REMAINED LETHARGIC AND MINIMALLY RESPONSIVE T/O MAJORITY OF SHIFT. AT APPROXIMATELY 0100 PT WAS ABLE TO START FOLLOWING COMMANDS. WOULD SHAKE HEAD YES/NO APPROPRIATELY, DEMONSTRATE GAS MANAGER STRENGTH. SHE REMAINS NONVERBAL BUT TRIES TO SPEAK AND MOANS/GRUNTS WHEN SHE SHAKES HER HEAD YES/NO. AFEBRILE AND DENIES PAIN. CONTINOUS CARDIAC MONITORING SHOWED SR WITH HR IN 80'S-90'S. BP STABLE. ON 4LPM O2 VIA OXIMASK SINCE DESATURATION EVENT EARLIER THIS SHIFT, SATURATIONS > 92% SEE NOTE. SOFT BROWN STOOL OUT IN OSTOMY. SITE REMAINS PINK. NO N/V. TUBE FEEDS INFUSING VIA NGT AT TRICE FEED. DIETITIAN PLANS TO INCREASE RATE TODAY PENDING AM LAB RESULTS. JUSTICE DRAIN TO R ABD WITH SEROSANGINOUS OUTPUT. PACE IN PLACE DRAINING DARK YELLOW URINE TO GRAVITY. SHARLA TO MIDLINE REMAINS C/D/I. RIJ REMAINS C/D/I. WILL CONTINUE TO MONITOR AND REPORT TO ONCOMING RN.
[2023-10-24 05:39] LABS: BAND PERCENT MAN 6 % (0-8); BASOPHILS PERCENT MAN 0 % (0-2); EOSINOPHILS PERCENT MAN 0 % (0-6); LYMPHOCYTES ABSOLUTE MAN 0.52 K/mm3 (0.84-5.20); LYMPHOCYTES PERCENT MAN 2 % (21-46); METAMYELOCYTE ABSOLUTE MAN 0.78 K/mm3 (0.00-0.00); METAMYELOCYTE PERCENT MAN 3 % (0-0); MONOCYTES ABSOLUTE MAN 1.04 K/mm3 (0.16-1.47); MONOCYTES PERCENT MAN 4 % (4-13); MYELOCYTE ABSOLUTE MAN 0.52 K/mm3 (0.00-0.00); MYELOCYTE PERCENT MAN 2 % (0-0); NEUTROPHILS ABSOLUTE MAN 23.26 K/mm3 (1.96-9.15); SEG NEUTROPHILS PERCENT MAN 83 % (41-73); TOTAL CELLS COUNTED 100
[2023-10-24] MEDS ORDERED: Potassium Phosphate Dibasic 15 MM in Dextrose 5% 250 ML IV STA (05:52)
[2023-10-24] MEDS ORDERED: Ipratropium/Albuterol SulF 2.5-0.5MG/3 ML Amp INH SCH (11:35)
[2023-10-24] MEDS ORDERED: Albuterol 2.5 MG/3 ML VIAL INH PRN (11:35)
--- NOTE | 2023-10-24 16:49 | NUR ---
SHIFT SUMMARY VERBALIZING MORE THROUGHOUT THE SHIFT. SMILING AND MAKING JOKES. VOICE IS STRONGER. SR, BP WNL. ON 2L NC AT START OF SHIFT. SEVERAL EPISODES OF DESATURATION REQUIRING NT SUCTION OF THICK BROWN/YELLOW SECRETIONS. STAT CXR COMPLETED AND PT PLACED ON BIPAP. ABLE TO TRANSITION BACK TO NC AFTER SEVERAL HOURS OF BIPAP. LUNGS COARSE, CLEARS WITH SUCTION. FLUTTER VALVE INITIATED, PT ABLE TO USE WITH ASSISTANCE THIS AFTERNOON. NGT TO LEFT NARE, TF INFUSING AT 10ML/HR. COLOSTOMY WITH 400ML LIQUID BROWN OUTPUT. PACE TO GRAVITY, PATENT AND DRAINING YELLOW URINE. ABD INCISION C/D/I, SHARLA DRAIN IN PLACE. EDEMA TO ARMS AND LEGS IMPROVING. RIGHT IJ CENTRAL LINE, INFUSING. NS TKO + IVPB. DAUGHTER AT BEDSIDE. UPDATED ON CURRENT CONDITION, ALL QUESTIONS ANSWERED. POC ONGOING.
[2023-10-25] VITALS (15 sets, daily range): BP systolic 119–161; BP diastolic 60–88
[2023-10-25 05:51] LABS: Hematocrit 24.4 % (33.0-51.0); Mean Corpuscular HGB 30.8 pg (26.0-34.0); Mean Corpuscular HGB Conc 32.8 g/dL (31.5-36.5); Mean Corpuscular Volume 94 fL (80-100); Mean Platelet Volume 9.3 fL (9.1-12.4); Platelet Count 281 K/mm3 (150-400); RDW Standard Deviation 47.8 fL (35.1-46.3); White Blood Cell Count 22.54 K/mm3 (4.00-11.30)
[2023-10-25 06:09] LABS: Albumin, Blood 1.2 g/dL (3.4-5.0); Anion Gap 11 mmol/L (3-11); Blood Urea Nitrogen 22 mg/dL (8-24); Bun/Creatinine Ratio 30.9 (12.0-20.0); CO2, Blood 26 mmol/L (21-32); Calcium, Blood 7.4 mg/dL (8.5-10.1); Chloride, Blood 109 mmol/L (98-108); Creatinine, Blood 0.71 mg/dL (0.40-1.00); Glomerular Filtration Rate 88 (60-); Glucose, Blood 113 mg/dL (70-99); Phosphorus, Blood 2.4 mg/dL (2.5-4.9); Potassium, Blood 3.2 mmol/L (3.5-5.5); Sodium, Blood 143 mmol/L (136-145)
[2023-10-25 06:11] LABS: BAND PERCENT MAN 13 % (0-8); BASOPHILS PERCENT MAN 0 % (0-2); EOSINOPHILS PERCENT MAN 0 % (0-6); LYMPHOCYTES ABSOLUTE MAN 1.12 K/mm3 (0.84-5.20); LYMPHOCYTES PERCENT MAN 5 % (21-46); METAMYELOCYTE ABSOLUTE MAN 0.22 K/mm3 (0.00-0.00); METAMYELOCYTE PERCENT MAN 1 % (0-0); MONOCYTES ABSOLUTE MAN 0.67 K/mm3 (0.16-1.47); MONOCYTES PERCENT MAN 3 % (4-13); MYELOCYTE ABSOLUTE MAN 0.67 K/mm3 (0.00-0.00); MYELOCYTE PERCENT MAN 3 % (0-0); NEUTROPHILS ABSOLUTE MAN 19.83 K/mm3 (1.96-9.15); SEG NEUTROPHILS PERCENT MAN 75 % (41-73); TOTAL CELLS COUNTED 100
--- NOTE | 2023-10-25 06:15 | NUR ---
SHIFT SUMMERY PT HAS BEEN ALERT AND ORIENTED W/SIGNIFICANT WEAKNESS. SHE DID NOT REQUIRE ANY NT SUCTIONING NOR BIPAP TODAY. OXYGEN SAT HAVE BEEN >90% ON 2LNC. COLOSTOMY W/LIQUID BROWN STOOL, STOMA WNL. MIDLINE ABD SURGICAL DRESSING C/D/I. SHARLA DRAIN. JUSTICE W/20CC SEROSANGUINOUS FLUID. PACE CATH INTACT PATENT AND DRAINING TO GRAVITY. SR ON THE ENTERPRISE SOFTWARE DEVELOPER. BP WNL. TRICKLE FEEDS INFUSING W/OUT DIFFICULTY. PT HAS HAD NO ACUTE CHANGES OVERNIGHT.
[2023-10-25] MEDS ORDERED: Potassium Phosphate Dibasic 20 MM in Dextrose 5% 500 ML IV STA (10:51)
[2023-10-25] MEDS ORDERED: HYDROcodone 7.5MG-APAP 325MG /15ML UDC PO PRN (11:05)
--- NOTE | 2023-10-25 15:47 | NUR ---
SHIFT SUMMARY/TX TO PCU 18 PATIENT WAS TRANSFERRED TO PCU 18 VIA RECLINER AND ON 2LPM VIA NC. MONITOR SHOWS SINUS TACH IN 110'S, SPO2 LOW 90'S. PATIENT SLEEPING AT TIME OF TRANSFER. PATIENT DAUGHTER ASSISTED WITH BRINGING PATIENT BELONGINGS TO NEW ROOM. KPHOS AND TERENCEN TRANSFERRED WITH PATIENT. CL REMOVED THIS SHIFT AND NEW 20G PIV TO RFA PLACED. NGT REMOVED FOLLOWING BEDSIDE SWALLOW EVAL. TOLERATING PO INTAKE WELL. PACE REMAINS IN PLACE. NO OTHER CHANGES THIS SHIFT.
--- NOTE | 2023-10-25 17:05 | NUR ---
UPDATE PT TRANSFERRED FROM ICU TO PCU AT APPROXIMATELY 1550. PT TRANSFERRED IN WC. BP STABLE. O2 SATS >90% ON 2L NC. WEAK COUGH NOTED. HR SINUS TACH LOW 100'S. PT COMPLAINS OF ABD PAIN. PT MEDICATED PER EMAR. PACE CATHETER WAS CLAMPED UPON ASSESSMENT AND PER REPORT HAD BEEN CLAMPED FOR A COUPLE HOURS. PACE UNCLAMPED TO MEASURE URINE OUTPUT. COLOSTOMY WITH MINIMAL LIQUID BROWN OUTPUT. JUSTICE DRAIN IN PLACE. MIDLINE INCISION WITH DRESSING C/D/I AND SHARLA DRAIN. PT UNCOMFORTABLE IN RECLINER AFTER REPOSITIONED SEVERAL TIMES AND TRANSFERRED TO THE BED VIA LIFT. PT RESTING IN BED AT THIS TIME. PT FALLING ASLEEP DURING CONVERSATION THIS EVENING. DAUGHTER AT BEDSIDE. PT AND DAUGHTER ORIENTED TO NEW ROOM AND CALL LIGHT. WILL CONTINUE TO MONITOR CLOSELY
[2023-10-25] MEDS ORDERED: GABA100 PO (19:56)
[2023-10-25] MEDS ORDERED: LOSA50 PO (19:57)
[2023-10-25] MEDS ORDERED: ZOCOR20 MG PO (19:57)
[2023-10-25] MEDS ORDERED: BUSPIRONE HCL7.5 M1 PO (19:58)
[2023-10-25] MEDS ORDERED: EMREAL 2.5%-2.1 EACH TOP (20:01)
--- NOTE | 2023-10-25 20:02 | NUR ---
MEDICATION LIST UPDATED HOME MEDICATION LIST UPDATED TO REFLECT THE PATIENTS MOST RECENLY PRESCRIBED MEDICATIONS ACCORDING TO [facility] FAX RECEIVED ON 10/20/23
[2023-10-26] VITALS (7 sets, daily range): BP systolic 135–160; BP diastolic 72–94
[2023-10-26 04:15] LABS: Hemoglobin 7.9 g/dL (11.5-16.0); Mean Corpuscular HGB Conc 32.9 g/dL (31.5-36.5); Mean Corpuscular Volume 94 fL (80-100); Mean Platelet Volume 9.2 fL (9.1-12.4); Platelet Count 334 K/mm3 (150-400); RDW Coefficient Variation 14.1 % (11.7-14.2); RDW Standard Deviation 48.4 fL (35.1-46.3); Red Blood Cell Count 2.55 M/mm3 (3.80-5.20); White Blood Cell Count 20.37 K/mm3 (4.00-11.30)
--- NOTE | 2023-10-26 04:16 | NUR ---
PATIENT A&OX2-3 THIS SHIFT, VERY SLEEPY. PRN PAIN MEDICAITON GIVEN PRIOR TO ANY TURNING EVENTS/ACTIVITY. PATIENT PROVIDED AN IS AND ENCOURAGED TO USE, STILL ON 2LNC. HIGH ASPIRATION RISK, HOB AT 90 FOR ANY PO INTAKE, PATIENT DOES WELL LONG SMALL SIPS ONLY. FAMILY NEEDING EDUCATION ON THIS, CURRENTLY ON A CLEAR LIQUID DIET. Q2H TURNS IN PLACE. GETTING OOB VIA LIFT ON DAY SHIFT. PACE ATHETER DISCONTINUED PER PROTOCOL. ATTEMPTING BLADDER TRIAL. REMOVED AT 2100, CURRENTLY BLADDER SCAN SHOWING 255ML. PUREWICK IN PLACE DUE TO PATIENT'S LIMITED MOBILITY. SHARLA DRAIN AND JUSTICE DRAIN INTACT, JUSTICE WIHT MINIMAL OUTPUT <20ML ON NIGHTS. COLOSTOMY EMPTIED LIQUID BROWN STOOL. MIDLINE ABDOMINAL INCISION CDI. PATIENT HAS A HISTORY OF A PESSARY FOR BLADDER PROLAPSE, SHE HAS A STRING PRESENT AT HER VAGINA- DO NO PULL. IV ANTIBIOTICS CONINUED FOR INTRABDOMINAL ABSCESS FROM BOWEL PERF.
[2023-10-26 04:37] LABS: Albumin, Blood 1.2 g/dL (3.4-5.0); Albumin/Globulin Ratio 0.3 (0.8-1.8); BAND PERCENT MAN 9 % (0-8); BASOPHILS PERCENT MAN 0 % (0-2); Bilirubin, Total 0.4 mg/dL (0.1-1.0); Calcium, Blood 7.2 mg/dL (8.5-10.1); Creatinine, Blood 0.63 mg/dL (0.40-1.00); EOSINOPHILS ABSOLUTE MAN 0.61 K/mm3 (0.00-0.68); EOSINOPHILS PERCENT MAN 3 % (0-6); Globulin, Blood 3.7 g/dL (2.2-4.0); LYMPHOCYTES ABSOLUTE MAN 1.01 K/mm3 (0.84-5.20); LYMPHOCYTES PERCENT MAN 5 % (21-46); METAMYELOCYTE ABSOLUTE MAN 0.81 K/mm3 (0.00-0.00); METAMYELOCYTE PERCENT MAN 4 % (0-0); MONOCYTES ABSOLUTE MAN 1.22 K/mm3 (0.16-1.47); MONOCYTES PERCENT MAN 6 % (4-13); MYELOCYTE ABSOLUTE MAN 0.61 K/mm3 (0.00-0.00); MYELOCYTE PERCENT MAN 3 % (0-0); Magnesium, Blood 2.1 mg/dL (1.6-2.4); NEUTROPHILS ABSOLUTE MAN 16.09 K/mm3 (1.96-9.15); Phosphorus, Blood 2.4 mg/dL (2.5-4.9); SEG NEUTROPHILS PERCENT MAN 70 % (41-73); TOTAL CELLS COUNTED 100; Total Protein, Blood 4.9 g/dL (6.4-8.2)
[2023-10-26] MEDS ORDERED: Potassium Chloride 40 MEQ in NS 250 ML IV ONE (10:10)
[2023-10-26 11:46] LABS: Source, Urine Foley catheter
[2023-10-26 13:34] LABS: Appearance, Urine Clear (Clear); Bilirubin, Urine Neg (Neg); Blood, Urine 1+ (Neg); Color, Urine Yellow (P-Yellow); Glucose Qualitative, Urine Neg (Neg); Ketones, Urine Neg (Neg); Leukocyte Esterase, Urine Neg (Neg); Nitrite, Urine Neg (Neg); Protein, Urine 2+ (Neg); Urobilinogen, Urine NORM (Normal)
[2023-10-26 13:46] LABS: Hyaline Casts 0-2 /lpf (0-2)
[2023-10-26 13:47] LABS: Amorphous Mod (0-Heavy)
[2023-10-26 13:48] LABS: Granular Casts 0-2 /lpf (0); Red Blood Cells, Urine 0-2 /hpf (0-2)
[2023-10-26 13:50] LABS: Bacteria Mod /hpf; Renal Epithelial Rare /hpf (0-Rare); Squamous Epithelial Cells Few /hpf (Few)
--- NOTE | 2023-10-26 13:50 | NUR ---
Spiritual Care Visit. Pt. is awake in a recliner. Daughter is present at bedside and welcomes my visit. This district manager postal service had supported the family while this Pt. has been intubated and not responsive. Pt. displayed evidence of caution and curiosity. This district manager postal service and the Pts. daughter both verbalized that this district manager postal service was present to support the Pt. and family. Prayed with Pt. Pt. verbalized gratitude that the prayer was short. Daughter verbalized gratitude for the spiritual care visit.
[2023-10-26] MEDS ORDERED: Potassium Phos/Sodium Phos 250 MG PACK PO SCH (17:00)
[2023-10-26] MEDS ORDERED: Atorvastatin 10 MG Tab PO SCH (18:00)
--- NOTE | 2023-10-26 18:28 | NUR ---
End of Shift Pt A&O x3. VSS. Spo2 > 92% on 2L NC. Monitor showing SR-ST, HR 80s-110. Pt unable to void this AM despite attempts. Bladder scan showing 438 mls urine. Strings noted coming from vagina w/ pt daughter reporting pt having pessary device holding bladder in place. Mars catheter inserted. OBGYN consulted by d/t milady. OBGYN to bedside for removal, cleaning & reinsertion of pessary. Pessary strings no longer visible. w/ instruction to remove mars cath for pt voiding. Mars cath removed @ approx 1500 w/ 600 mls urine in drainage bag. Pt still w/ no post mars void. Bladder scan done this evening showing 45 mls urine. Pt w/ abd midline incision w/ SHARLA drain. JUSTICE drain to RLQ w/ minimal output. Colostomy to LLQ w/ dark brown liquid stool. Pt awake first portion of shift, then complaining of "butt" pain this afternoon. Pt medicated for pain per emar w/ pt then mostly sleeping thereafter. Pt daughter encouraging pt to remain awake at dinner for po intake. Pt daughter assisting pt w/ meals & ROM activities in bed & recliner today. Pt requiring Q2H repositioning & ceiling lift for transfer from bed/chair.
[2023-10-27 03:40] VITALS: BP 152/81
[2023-10-27 04:28] LABS: Hematocrit 26.1 % (33.0-51.0); Hemoglobin 8.2 g/dL (11.5-16.0); Mean Corpuscular HGB 30.7 pg (26.0-34.0); Mean Corpuscular HGB Conc 31.4 g/dL (31.5-36.5); Mean Corpuscular Volume 98 fL (80-100); Mean Platelet Volume 9.2 fL (9.1-12.4); Platelet Count 450 K/mm3 (150-400); RDW Coefficient Variation 14.5 % (11.7-14.2); RDW Standard Deviation 50.4 fL (35.1-46.3); Red Blood Cell Count 2.67 M/mm3 (3.80-5.20); White Blood Cell Count 22.82 K/mm3 (4.00-11.30)
[2023-10-27 04:52] LABS: Albumin, Blood 1.4 g/dL (3.4-5.0); Albumin/Globulin Ratio 0.4 (0.8-1.8); Bilirubin, Total 0.4 mg/dL (0.1-1.0); Calcium, Blood 7.6 mg/dL (8.5-10.1); Creatinine, Blood 0.54 mg/dL (0.40-1.00); Globulin, Blood 3.8 g/dL (2.2-4.0); Potassium, Blood 3.3 mmol/L (3.5-5.5); Total Protein, Blood 5.2 g/dL (6.4-8.2)
[2023-10-27 05:36] LABS: BAND PERCENT MAN 5 % (0-8); BASOPHILS PERCENT MAN 0 % (0-2); EOSINOPHILS PERCENT MAN 0 % (0-6); LYMPHOCYTES % ATYPICAL MANUAL 1 % (0-0); LYMPHOCYTES ABSOLUTE MAN 0.68 K/mm3 (0.84-5.20); LYMPHOCYTES PERCENT MAN 2 % (21-46); METAMYELOCYTE ABSOLUTE MAN 0.68 K/mm3 (0.00-0.00); METAMYELOCYTE PERCENT MAN 3 % (0-0); MONOCYTES ABSOLUTE MAN 0.68 K/mm3 (0.16-1.47); MONOCYTES PERCENT MAN 3 % (4-13); MYELOCYTE ABSOLUTE MAN 0.68 K/mm3 (0.00-0.00); MYELOCYTE PERCENT MAN 3 % (0-0); NEUTROPHILS ABSOLUTE MAN 19.85 K/mm3 (1.96-9.15); PLASMA CELL ABSOLUTE MAN 0.22 K/mm3 (0.00-0.00); PLASMA CELLS PERCENT MAN 1 % (0-0); SEG NEUTROPHILS PERCENT MAN 82 % (41-73); TOTAL CELLS COUNTED 100
--- NOTE | 2023-10-27 05:59 | NUR ---
SHIFT SUMMARY: A/Ox2-3 AND COOPERATIVE WITH CARE. KNOWS HER WELL THE NAME OF HER DAUGHTER, BUT WAS UNSURE OF WHERE SHE WAS AT OR THE DATE. CONTINUES TO DENY ANY CP, PRESSURE OR DIZZINES. SBP HAS BEEN ELEVATED THIS SHIFT RANGING 150-160'S. MAINTAINS SPO2 >90% ON 2L NS. DENIES SOB OR DYSPNEA. HAS MOIST NON-PRODUCTIVE COUGH. WAS NOT ABLE TO VOID DURING THE NIGHT DESPITE ENDORSING NEED TO VOID. BLADDER SCAN PERFORMED WITH RESULTING STRAIGHT CATH DUE TO CONTINUING RETENTION. COLOSTOMY CONTINUES TO PRODUCE DARK BROWN/SOFT STOOL. HAD INCREASED LEVELS OF ABD PAIN DURING THE NIGHT BUT WAS WELL CONTROLLED WITH PRN PAIN MEDICATIONS. JUSTICE DRAIN CONTINUES TO HAVE CLEAR/PINK OUTPUT. ABD DRESSING WITH SHARLA DRAIN REMAIN C/D/I. Q2 HOUR REPOSITIONING CONDUCTED DURING THE NIGHT. NO NEW ORDERS AT THIS TIME, WILL REPORT TO ONCOMING RN. JANET RAMON OF THIS NOTE.
[2023-10-27 08:14] VITALS: BP 154/77
[2023-10-27] MEDS ORDERED: Multivitamins-Minerals Liquid 15 ML Oral Syringe PO SCH (09:00)
[2023-10-27] MEDS ORDERED: Protein Supplement 30 ML UD PO SCH (09:00)
[2023-10-27] MEDS ORDERED: Thiamine HCl 100 MG Tab PO SCH (09:00)
[2023-10-27] MEDS ORDERED: Folic Acid 1 MG TAB PO SCH (09:00)
[2023-10-27] MEDS ORDERED: Potassium Chl 20MEQ/Water100ML 100 ML IV ONE (11:15)
[2023-10-27 12:00] VITALS: BP 150/91
--- NOTE | 2023-10-27 12:07 | NUR ---
PTS HR TRENDING UP SINCE BEGINING OF SHIFT. PTS HR IN THE 110'S AND NOW GOING INTO THE 120S. DR RAUSCH NOTIFIED.
--- NOTE | 2023-10-27 14:30 | NUR ---
SHIFT SUMMERY PT A&OX3. PT WAS ON 2L NC BUT REQIUIRED 4L WITH ACTIVITY. PHYSICAL THERAPY WORKED WITH PT TODAY. PT WAS ABLE TO VOID 175ML. POST VOID BLADDER SCAN RESULTED 350. DR. CLEMENTE AWARE. PT REMAINS ON TELEMETRY MONITORING.
[2023-10-27] MEDS ORDERED: Metoprolol Succinate 25 MG TABCR PO SCH (14:36)
--- NOTE | 2023-10-27 14:55 | NUR ---
REPORT TO MINNIE Dai RN TO ASSUME CARE OF PT. PT TRANSPORTED TO ROOM 227 VIA HOSPITAL BED. BELONGINGS COLLECTED AND SENT WITH PT. PT NOT IN ANY DISTRESS AT THIS TIME.
--- NOTE | 2023-10-27 19:31 | NUR ---
SHIFT SUMMARY POD8 EX LAP WITH SIGMOID COLLECTOMY AND NEW OSTOMY CREATION, JUSTICE DRAINING SS DRAIANAGE, MIDLINE SHARLA INTACT WITH SCANT SPOTS OF DRAINAGE NOTED. SHE IS VERY WEAK AND UNABLE TO GET OUT OF BED, USES LIFT TO GO TO CHAIR TO WORK WITH THERAPY. POOR PO INTACT BUT WE ARE ENCOURAGING NUTRITION SHAKES. NO ACUTE EVENTS THIS SHIFT, CALL LIGHT IN REACH.
[2023-10-27 20:31] VITALS: BP 171/88
[2023-10-27] MEDS ORDERED: Gabapentin 100 MG Cap PO SCH (21:00)
[2023-10-27 23:54] LABS: Source, Urine Foley catheter
[2023-10-28 00:06] LABS: Bilirubin, Urine Neg (Neg); Blood, Urine 1+ (Neg); Glucose Qualitative, Urine Neg (Neg); Ketones, Urine Neg (Neg); Leukocyte Esterase, Urine Neg (Neg); Nitrite, Urine Neg (Neg); Protein, Urine 2+ (Neg); Specific Gravity, Urine 1.015 (1.003-1.022); Urobilinogen, Urine NORM (Normal); pH, Urine 6.5 (5.0-8.0)
[2023-10-28 00:24] LABS: Appearance, Urine Clear (Clear); Color, Urine Yellow (P-Yellow)
[2023-10-28 00:26] LABS: Amorphous Light (0-Heavy); Bacteria Few /hpf; Granular Casts 0-2 /lpf (0); Hyaline Casts 0-2 /lpf (0-2); Red Blood Cells, Urine 0-2 /hpf (0-2); Squamous Epithelial Cells Few /hpf (Few); White Blood Cells, Urine 0-2 /hpf (0-5)
[2023-10-28 03:13] VITALS: BP 174/88
[2023-10-28 05:05] LABS: Hematocrit 25.5 % (33.0-51.0); Mean Corpuscular HGB 30.5 pg (26.0-34.0); Mean Corpuscular HGB Conc 31.4 g/dL (31.5-36.5); Mean Corpuscular Volume 97 fL (80-100); Mean Platelet Volume 9.2 fL (9.1-12.4); Platelet Count 512 K/mm3 (150-400); RDW Coefficient Variation 14.6 % (11.7-14.2); RDW Standard Deviation 51.1 fL (35.1-46.3); Red Blood Cell Count 2.62 M/mm3 (3.80-5.20)
[2023-10-28 05:26] LABS: BAND PERCENT MAN 5 % (0-8); BASOPHILS PERCENT MAN 0 % (0-2); EOSINOPHILS ABSOLUTE MAN 0.24 K/mm3 (0.00-0.68); EOSINOPHILS PERCENT MAN 1 % (0-6); LYMPHOCYTES ABSOLUTE MAN 0.48 K/mm3 (0.84-5.20); LYMPHOCYTES PERCENT MAN 2 % (21-46); METAMYELOCYTE ABSOLUTE MAN 0.24 K/mm3 (0.00-0.00); METAMYELOCYTE PERCENT MAN 1 % (0-0); MONOCYTES ABSOLUTE MAN 0.72 K/mm3 (0.16-1.47); MONOCYTES PERCENT MAN 3 % (4-13); MYELOCYTE ABSOLUTE MAN 0.72 K/mm3 (0.00-0.00); MYELOCYTE PERCENT MAN 3 % (0-0); NEUTROPHILS ABSOLUTE MAN 21.78 K/mm3 (1.96-9.15); SEG NEUTROPHILS PERCENT MAN 85 % (41-73); TOTAL CELLS COUNTED 100
[2023-10-28 05:54] LABS: Albumin, Blood 1.4 g/dL (3.4-5.0); Albumin/Globulin Ratio 0.4 (0.8-1.8); Bilirubin, Total 0.4 mg/dL (0.1-1.0); Bun/Creatinine Ratio 25.7 (12.0-20.0); Calcium, Blood 7.8 mg/dL (8.5-10.1); Creatinine, Blood 0.54 mg/dL (0.40-1.00); Globulin, Blood 3.9 g/dL (2.2-4.0); Total Protein, Blood 5.3 g/dL (6.4-8.2)
--- NOTE | 2023-10-28 06:18 | NUR ---
Patient alert and oriented x3, VSS, resting comfortably in bed. PRN pain medication given x1, see eMAR. Patient tolerating KVO saline infusion and Zosyn to right forearm PIV. JUSTICE drain to right lower abdomen intact, draining scant serosanguinous output. Patient mobilized in bed, turned Q2 hours for pressure injury prevention with max assist. Patient initially incontinent of bladder, bladder scan post void residual >400; masr catheter inserted following sterile procedure, green catheter wipes used for site preparation instead of iodine per listed allergy, tolerated well.
[2023-10-28 07:26] VITALS: BP 188/90
[2023-10-28] MEDS ORDERED: Potassium Chloride 40 MEQ in NS 250 ML IV ONE (07:35)
[2023-10-28] MEDS ORDERED: Losartan Potassium 50 MG Tab PO SCH (09:00)
[2023-10-28] MEDS ORDERED: Piperacillin/Tazobactam Sod 4.5 GM ONE (09:07)
--- NOTE | 2023-10-28 11:43 | NUR ---
Spiritual Care Visit. Pt. is awake keyon chair and welcomes my visit. Pt. displays evidence of being emotionally distant, and verbalized that eliz is not a part of her life. Considered matters of family and Pt. verbalized gratitude for [facility] cold roll packer sheet iron's support of the family. Pt. verbalized gratitude for the visit and verbalized permission for this cold roll packer sheet iron to return.
[2023-10-28 14:07] VITALS: BP 160/84
--- NOTE | 2023-10-28 14:16 | NUR ---
1350 PTS DAUGHTER REPORTS PT WITH "PANTING" RESPIRATIONS. LUNGS CLEAR, BIOX 96%-97% ON 2 LITERS. PER PATIENTS DAUGHTER SHE IS ALSO CONCERNED THAT PT IS THIRSTY AND DRINKING A LOT. VITAL SIGNS CHECKED. PT REPORTS SOME SOB WHEN ASKED. NOTIFIED DR CLEMENTE OF PATIENT AND FAMILY CONCERNS
--- NOTE | 2023-10-28 15:33 | NUR ---
JAVIER PATCH REMOVED BY [facility] PER DR PIERSON ORDER
--- NOTE | 2023-10-28 16:25 | NUR ---
SITTING IN CHAIR MUCH OF SHIFT. PT STOOD FROM CHAIR WITH PT WHICH PATIENTS DAUGHTER STATES IS THE MOST SHE HAS BEEN ABLE TO DO. PAIN CONTROLLD AT 4/10 WITH PO MEDS WHICH PER PATIENT IS AN ACCEPTABLE LEVEL. OSTOMY WITH 550 ML DUKE/GREEN OUTPUT L , MAINLY LIQUID BUT SOME SLIGHTLY FORMED SOFT STOOL. POOR PO INTAKE OF FOOD BUT HAS TOLERATED ENSURE. DENIES SOB AND NO FURTHER PANTING RESPIRATIONS. PTS DAUGHTER REMINDING PATIENT TO USE FLUTTER VALVE
[2023-10-28] MEDS ORDERED: Calcium Polycarbophil 625 MG Tab PO SCH ×2 (17:00→21:00)
[2023-10-28 19:29] VITALS: BP 158/76
[2023-10-29 04:35] VITALS: BP 173/81
[2023-10-29 05:06] LABS: BASOPHILS ABSOLUTE AUTO 0.07 K/mm3 (0.00-0.23); BASOPHILS PERCENT AUTO 0 % (0-2); EOSINOPHILS ABSOLUTE AUTO 0.15 K/mm3 (0.00-0.68); EOSINOPHILS PERCENT AUTO 1 % (0-6); Hematocrit 27.8 % (33.0-51.0); Hemoglobin 8.9 g/dL (11.5-16.0); IMMATURE GRAN ABSOLUTE AUTO 1.03 K/mm3 (0.00-0.10); IMMATURE GRAN PERCENT AUTO 4 % (0-1); LYMPHOCYTES ABSOLUTE AUTO 1.44 K/mm3 (0.84-5.20); LYMPHOCYTES PERCENT AUTO 6 % (21-46); MONOCYTES ABSOLUTE AUTO 1.29 K/mm3 (0.16-1.47); MONOCYTES PERCENT AUTO 6 % (4-13); Mean Corpuscular HGB 30.5 pg (26.0-34.0); Mean Corpuscular Volume 95 fL (80-100); Mean Platelet Volume 9.3 fL (9.1-12.4); NEUTROPHILS ABSOLUTE AUTO 19.38 K/mm3 (1.96-9.15); NEUTROPHILS PERCENT AUTO 83 % (41-73); Platelet Count 536 K/mm3 (150-400); RDW Coefficient Variation 14.7 % (11.7-14.2); RDW Standard Deviation 49.8 fL (35.1-46.3); Red Blood Cell Count 2.92 M/mm3 (3.80-5.20); White Blood Cell Count 23.36 K/mm3 (4.00-11.30)
[2023-10-29 05:32] LABS: Albumin, Blood 1.3 g/dL (3.4-5.0); Albumin/Globulin Ratio 0.3 (0.8-1.8); Bilirubin, Total 0.4 mg/dL (0.1-1.0); Bun/Creatinine Ratio 29.5 (12.0-20.0); Calcium, Blood 7.6 mg/dL (8.5-10.1); Creatinine, Blood 0.54 mg/dL (0.40-1.00); Globulin, Blood 3.9 g/dL (2.2-4.0); Potassium, Blood 3.3 mmol/L (3.5-5.5); Total Protein, Blood 5.2 g/dL (6.4-8.2)
--- NOTE | 2023-10-29 06:39 | NUR ---
SHIFT SUMMARY PT ALERT, ORIENTED TO SELF, PERSON, AND "HOSPITAL". PT UNABLE TO RECALL EVENT/SITUATION, TIME/DATE. VSS, NO TELE EVENTS. REMAINS ON 2 LPM NC, SPO2 94 - 96%. AFEBRILE. PT OVERALL VERY WEAK, BUT IS ATTEMPTING TO PARTICIPATE IN CARE SUCH REACHING FOR WATER CUP AND HOLDING IT, ETC. OSTOMY IN PLACE AND APPLIANCE CHANGED THIS SHIFT; 500 MLS OUT OF LIGHT BROWN LIQUID, WITH SEROSANGUINEOUS FLUID. SCANT AMOUNT OF FORMED STOOL NOTED T/O. SHARLA DRESSING REMOVED, SITE CLEANED, AND MEDIPORE DRESSING PLACED. KJ IN PLACE AND INCISION SITE WITHOUT REDNESS OR DRAINAGE. PT DENIES PAIN OR TENDERNESS. JUSTICE DRAIN IN PLACE WITH SCANT DRAINAGE THIS SHIFT; DRESSING CHANGED. PACE IN PLAE AND DRAINING YELLOW URINE TO GRAVITY; 600 MLS UOP. Q2 REPOSITIONING OR NEEDED. PT TOLERATING WATER INTAKE AND CLEAR ENSURE, HOWEVER STILL NOT WANTING "FOOD" OR FULL LIQUID DIET THIS SHIFT. CALL LIGHT IN REACH. WILL UPDATE ONCOMING RN.
[2023-10-29 07:37] VITALS: BP 177/82
--- NOTE | 2023-10-29 09:40 | NUR ---
[address] WITH LIQUID BROWN STOOL OUTPUT AND FLATUS PRESENT IN BAG. OSTOMY OPENING PINK
[2023-10-29 14:36] VITALS: BP 168/91
[2023-10-29] MEDS ORDERED: Piperacillin/Tazobactam Sod 4.5 GM in NS 100 ML IV SCH (16:00)
--- NOTE | 2023-10-29 18:45 | NUR ---
PER PTS DAUGHTER PT IS MORE CONFUSED TODAY, SHE IS ASKING TO GET DRESSED AND WANTS TO CLEAN HER HOUSE. BED ALARM IN PLACE UPON RETURN TO BED. PT HAS TAKEN ENSURE AND POPSICLE ONLY. OSTOMY WITH BROWN LIQUID OUTPUT. ABD DRESSING DRY AND INTACT
[2023-10-29 19:10] VITALS: BP 159/79
[2023-10-29 22:59] VITALS: BP 166/87
[2023-10-30 02:57] VITALS: BP 149/77
--- NOTE | 2023-10-30 03:15 | NUR ---
PT HAVING SOME RED/ORANGE TINGED FLUID OUTPUT FROM OSTOMY MIXED W/ SOFT STOOL. PT DID DRINK A RED DRINK SOMETIME DURING PREVIOUS SHIFT. NOTIFIED DR. BAY, ORDERED H&H TO BE DRAWN THIS AM. NO FURTHER ORDERS RECIEVED. PT STABLE AT THIS TIME. NO NOTEABLE CHANGE IN VS.
[2023-10-30 04:44] LABS: Hematocrit 25.2 % (33.0-51.0); Hemoglobin 8.2 g/dL (11.5-16.0)
--- NOTE | 2023-10-30 05:48 | NUR ---
SHIFT SUMMARY POD11 FOR COLECTOMY W/ NEW OSTOMY. PT IS A/O TO SELF AND PLACE BUT NOT TO SITUATION. FOLLOWS COMMANDS, ASKS LOTS OF QUESTIONS REGARDING CARE. BED ALARM ON. PT REPOSITIONED THROUGHOUT THE NIGHT. MIDLINE DRESSING C/D/I. OSTOMY DRAINING RED/ORANGE TINGED LOOSE STOOL, SEE PREVIOUS NOTE. WILL ALSO PASS ON TO DAY SHIFT RN. VSS, NO ACUTE CHANGES IN PT'S CONDITION NOTED. PT DENIES PAIN AND NAUSEA. PACE IN PLACE DRAINING LIGHT YELLOW URINE. IV ABV GIVEN PER EMAR. PT TOLERATING CL DIET. USING CALL LIGHT OCCASIONALLY.
[2023-10-30 07:17] VITALS: BP 166/86
[2023-10-30] MEDS ORDERED: Enoxaparin 40 MG/0.4 ML SYR SC SCH (13:00)
[2023-10-30 14:42] VITALS: BP 159/80
[2023-10-30] MEDS ORDERED: Calcium Polycarbophil 625 MG Tab PO SCH (16:30)
[2023-10-30] MEDS ORDERED: Acetaminophen 325 MG TABLET PO PRN (16:40)
--- NOTE | 2023-10-30 18:04 | NUR ---
SUMMARY NO ACUTE CHANGES T/O SHIFT. PT'S FAMILY BEDSIDE FOR MOST OF DAY. PT WORKED WITH PT THIS AM AND GOT UP TO RECLINER. FELT LIKE HAD TO HAVE BM, GOT TO BSC W/GAIT BELT AND FWW, DID NOT PASS ANYTHING. HAD DIFFICULTY AMBULATING BACK TO BED DUE TO WEAKNESS AND FATIGUE. LATER GOT UP IN RECLINER AGAIN FOR MOST OF AFTERNOON. PT TRANSFERRED TO BED WHEN BECAME UNCOMFORTABLE IN CHAIR. OSTOMY PUTTING OUT SEMI LIQUID STOOL. PACE DRAINING YELLOW URINE. POWER GLIDE STARTED TODAY. MEPILEX PLACED TO BUTTOCKS DUE TO REDNESS. PT'S APPETITE POOR, FAMILY ENCOURAGING PT TO EAT. CALL LIGHT IN REACH, BED ALARM ON.
[2023-10-30 19:31] VITALS: BP 154/78
[2023-10-31 03:55] VITALS: BP 178/83
--- NOTE | 2023-10-31 05:42 | NUR ---
SHIFT SUMMARY PT IS STILL CONFUSED BUT FOLLOWING COMMANDS AND EASILY REDIRECTABLE. OSTOMY OUTPUT LIQUID BROWN. PT DENIES PAIN, N/V. PT REPOSITIONED IN BED THROUGHOUT SHIFT, MEPILEX IN PLACE ON COCCYX. IV ABX GIVEN PER EMAR. BED ALARM ON. TELE ON, CONT BIOX, O2 SATS >92% ON 2LNC. VSS. PT USING CALL LIGHT PERIODICALLY.
[2023-10-31 06:14] LABS: BASOPHILS ABSOLUTE AUTO 0.07 K/mm3 (0.00-0.23); BASOPHILS PERCENT AUTO 1 % (0-2); EOSINOPHILS ABSOLUTE AUTO 0.12 K/mm3 (0.00-0.68); EOSINOPHILS PERCENT AUTO 1 % (0-6); Hematocrit 23.5 % (33.0-51.0); Hemoglobin 7.8 g/dL (11.5-16.0); IMMATURE GRAN ABSOLUTE AUTO 0.29 K/mm3 (0.00-0.10); IMMATURE GRAN PERCENT AUTO 2 % (0-1); LYMPHOCYTES PERCENT AUTO 7 % (21-46); MONOCYTES PERCENT AUTO 5 % (4-13); Mean Corpuscular HGB 31.3 pg (26.0-34.0); Mean Corpuscular HGB Conc 33.2 g/dL (31.5-36.5); Mean Corpuscular Volume 94 fL (80-100); Mean Platelet Volume 9.2 fL (9.1-12.4); NEUTROPHILS ABSOLUTE AUTO 12.65 K/mm3 (1.96-9.15); NEUTROPHILS PERCENT AUTO 84 % (41-73); Platelet Count 469 K/mm3 (150-400); Red Blood Cell Count 2.49 M/mm3 (3.80-5.20); White Blood Cell Count 15.03 K/mm3 (4.00-11.30)
[2023-10-31 06:44] LABS: Albumin, Blood 1.4 g/dL (3.4-5.0); Anion Gap 8 mmol/L (3-11); Blood Urea Nitrogen 17 mg/dL (8-24); Bun/Creatinine Ratio 31.1 (12.0-20.0); CO2, Blood 27 mmol/L (21-32); Calcium, Blood 7.6 mg/dL (8.5-10.1); Chloride, Blood 111 mmol/L (98-108); Creatinine, Blood 0.55 mg/dL (0.40-1.00); Glomerular Filtration Rate 94 (60-); Glucose, Blood 87 mg/dL (70-99); Magnesium, Blood 1.7 mg/dL (1.6-2.4); Phosphorus, Blood 2.6 mg/dL (2.5-4.9); Potassium, Blood 2.8 mmol/L (3.5-5.5); Sodium, Blood 143 mmol/L (136-145)
[2023-10-31 06:47] VITALS: BP 172/84
[2023-10-31 07:25] VITALS: BP 163/78
[2023-10-31] MEDS ORDERED: Potassium Chl 20MEQ/Water100ML 100 ML IV SCH ×3 (09:00→23:00)
[2023-10-31 15:45] VITALS: BP 149/77
--- NOTE | 2023-10-31 17:21 | NUR ---
SUMMARY NO ACUTE CHANGES T/O SHIFT. FAMILY ENCOURAGING PO INTAKE BY BRINGING IN ASSORTED FOODS PT MAY FIND APPEALING. PT SAT UP IN CHAIR FOR SEVERAL HOURS DURING SHIFT. VERY WEAK, TWO PERSON MAX ASSIST W/GAIT BELT AND FWW. NOW BACK TO BED. PT'S BUTTOCKS SORE, RED; MEPILEX IN PLACE AND PT REPOSIITONED T/O SHIFT. REDNESS NOTED ON SPINE WHEN PT GOT BACK TO BED, PLACED MEPILEX TO AREA (MID BACK) TO PROTECT. FAMILY BEDSIDE. CALL LIGHT IN REACH.
[2023-10-31 19:31] VITALS: BP 164/83
[2023-10-31 19:32] VITALS: BP 159/85
[2023-11-01 02:15] VITALS: BP 175/85
[2023-11-01] MEDS ORDERED: HydrALAZINE HCl 20 MG / ML 1ML Vial IV PRN (04:15)
--- NOTE | 2023-11-01 04:57 | NUR ---
PT HYPERTENSIVE, NOTIFIED DR. BAY, PT DOES HAVE SCHEDULED ANTIHYPERTENSIVES THAT AREN'T DUE FOR SEVERAL HOURS. ORDER RECIEVED FOR IV HYDRALAZINE. NO CHANGE IN PT CONDITION.
[2023-11-01 04:58] VITALS: BP 178/76
--- NOTE | 2023-11-01 05:30 | NUR ---
SHIFT SUMMARY PT IS POD13 FOR COLECTOMY W/ NEW OSTOMY. OSTOMY PUTTING OUT BROWN LIQUID. MIDLINE INCISION C/D/I. PT REPOSITIONED THROUGHOUT SHIFT, NEW MEPILEX APPLIED TO COCCYX. FLUIDS, IV ABX AND K GIVEN PER EMAR. PT GIVEN HYDRALAZINE FOR HTN PER DR. BAY. TOLERATING FULL LIQUIDS. PACE CATH IN PLACE DRAINING YELLOW URINE. BED ALARM ON. PT USING CALL LIGHT OCCASIONALLY.
[2023-11-01 06:43] VITALS: BP 148/75
[2023-11-01 07:14] VITALS: BP 149/79
[2023-11-01 08:48] LABS: Creatinine, Blood 0.48 mg/dL (0.40-1.00); Potassium, Blood 3.8 mmol/L (3.5-5.5)
[2023-11-01 10:13] LABS: BASOPHILS ABSOLUTE AUTO 0.06 K/mm3 (0.00-0.23); BASOPHILS PERCENT AUTO 0 % (0-2); EOSINOPHILS ABSOLUTE AUTO 0.08 K/mm3 (0.00-0.68); EOSINOPHILS PERCENT AUTO 1 % (0-6); Hematocrit 24.9 % (33.0-51.0); Hemoglobin 8.2 g/dL (11.5-16.0); IMMATURE GRAN ABSOLUTE AUTO 0.18 K/mm3 (0.00-0.10); IMMATURE GRAN PERCENT AUTO 1 % (0-1); LYMPHOCYTES ABSOLUTE AUTO 1.15 K/mm3 (0.84-5.20); LYMPHOCYTES PERCENT AUTO 7 % (21-46); MONOCYTES ABSOLUTE AUTO 0.86 K/mm3 (0.16-1.47); MONOCYTES PERCENT AUTO 5 % (4-13); Mean Corpuscular HGB 31.3 pg (26.0-34.0); Mean Corpuscular HGB Conc 32.9 g/dL (31.5-36.5); Mean Corpuscular Volume 95 fL (80-100); Mean Platelet Volume 9.4 fL (9.1-12.4); NEUTROPHILS ABSOLUTE AUTO 14.45 K/mm3 (1.96-9.15); NEUTROPHILS PERCENT AUTO 86 % (41-73); Platelet Count 510 K/mm3 (150-400); RDW Coefficient Variation 15.4 % (11.7-14.2); RDW Standard Deviation 51.8 fL (35.1-46.3); Red Blood Cell Count 2.62 M/mm3 (3.80-5.20); White Blood Cell Count 16.78 K/mm3 (4.00-11.30)
[2023-11-01 14:49] VITALS: BP 164/88
--- NOTE | 2023-11-01 16:54 | NUR ---
Care Conference: Met with pt for a visit. She is pleasantly confused. Noted she is able to make small talk, but unable to answer questions about what town we're in, where her currently is, etc. She appears to try masking her memory issues by changing the subject when she isn't sure of the answer. Pt's daughter and son-in--law are re-evaluating the plan at this time, as the patient has been eating less and less, now drinking very little fluids. Per bedside RN, pt is getting more resistive to care and continues refusing to take in PO. Plan to discuss pt's plan of care further with care team tomorrow, then speak with family.
--- NOTE | 2023-11-01 17:48 | NUR ---
SHIFT SUMMARY POD 13 SIGMOID COLECTOMY WITH OSTOMY. PT HAS DECLINED TO EAT TODAY, FAMILY AND NURSING STAFF ENCOURAGING. HAS TAKEN SMALL AMOUNTS OF ENSURE. UP TO CHAIR DURING SHIFT. PT ON ROOM AIR FOR MOST OF SHIFT, PLACED BACK ON 1L THIS AFTERNOON WHILE RESTING IN BED. SMALL AMOUNTS OF LIQUID BROWN STOOL IN OSTOMY. 2 ASSIST WITH TRANSFERS. ABLE TO STAND AND TAKE A FEW SMALL STEPS THIS AFTERNOON. FAMILY AT BEDSIDE T/O SHIFT.
[2023-11-01 19:33] VITALS: BP 148/76
[2023-11-02 03:57] VITALS: BP 171/84
--- NOTE | 2023-11-02 06:07 | NUR ---
SHIFT SUMMARY LUIS EDUARDO WAS ALERT AND MORE ORIENTED THIS EVENING THAN WAS REPORTED FOR THE LAST FEW DAYS, ABLE TO ANSWER CITY, HOSPITAL, AND YEAR. PT VOIDING AFTER CATHETER REMOVAL ON DAY SHIFT. ONE EPISODE OF INCONTINENCE. OSTOMY OUTPUTTING LARGE WATERY STOOL. REPOSITIONED FREQUENTLY T/O NIGHT. NO NOTED CHANGES TO CONDITION. PT ONLY CONSUMING SMALL SIPS TONIGHT DESPITE ENCOURAGEMENT.
[2023-11-02 07:37] VITALS: BP 146/73
[2023-11-02 10:40] LABS: BASOPHILS ABSOLUTE AUTO 0.05 K/mm3 (0.00-0.23); BASOPHILS PERCENT AUTO 1 % (0-2); EOSINOPHILS ABSOLUTE AUTO 0.08 K/mm3 (0.00-0.68); EOSINOPHILS PERCENT AUTO 1 % (0-6); Hematocrit 31.9 % (33.0-51.0); Hemoglobin 10.4 g/dL (11.5-16.0); IMMATURE GRAN ABSOLUTE AUTO 0.11 K/mm3 (0.00-0.10); IMMATURE GRAN PERCENT AUTO 1 % (0-1); LYMPHOCYTES ABSOLUTE AUTO 0.78 K/mm3 (0.84-5.20); LYMPHOCYTES PERCENT AUTO 7 % (21-46); MONOCYTES ABSOLUTE AUTO 0.58 K/mm3 (0.16-1.47); MONOCYTES PERCENT AUTO 5 % (4-13); Mean Corpuscular HGB 30.7 pg (26.0-34.0); Mean Corpuscular HGB Conc 32.6 g/dL (31.5-36.5); Mean Corpuscular Volume 94 fL (80-100); Mean Platelet Volume 9.1 fL (9.1-12.4); NEUTROPHILS ABSOLUTE AUTO 9.19 K/mm3 (1.96-9.15); NEUTROPHILS PERCENT AUTO 85 % (41-73); Platelet Count 408 K/mm3 (150-400); RDW Coefficient Variation 15.7 % (11.7-14.2); RDW Standard Deviation 52.7 fL (35.1-46.3); Red Blood Cell Count 3.39 M/mm3 (3.80-5.20); White Blood Cell Count 10.79 K/mm3 (4.00-11.30)
[2023-11-02 15:15] VITALS: BP 157/74
--- NOTE | 2023-11-02 15:30 | NUR ---
Pt's daughter states she is ready to take the patient home with hospice. She requests we begin comfort care now, so that pt remains comfortable from now until she arrives to pt's home in [place]. Dr. Cortes is already aware of and approves of this plan. Bedside RN also aware. The pt doesn't know were she is today and believes she is already in [place]. She also refused to work with PT today, and states she is "ready to take some time off from therapy." Comfort care plan initiated.
[2023-11-02] MEDS ORDERED: Ondansetron HCl 2 MG / ML 2ML Vial IV PRN (15:55)
[2023-11-02] MEDS ORDERED: Morphine Sulfate 20 MG/1ML 1 ML Oral Syringe PO PRN (16:05)
[2023-11-02] MEDS ORDERED: ALPRAZolam 0.5 MG Tab PO PRN (16:05)
--- NOTE | 2023-11-02 17:56 | NUR ---
SHIFT SUMMARY: THE PT REMAINED CONFUSED AND FORGETFUL THROUGHOUT THE DAY BUT HAS REMAINED PLEASENT AND SMILING. SHE WAS ABLE TO MOVE FROM THE BED TO COMMODE TO CHAIR THIS AM WITH MOD ASSISTANCE. TWO PERSON ASSIST FROM CHAIR TO BED, HER LEGS WERE WEAK AND DECONDITIONED. OBSERVED THE PATIENT HAVING DIFFICULTY SWALLOWING WITH THICKENED LIQUIDS. MOVED TO ENSURE CLEAR. PT REFUSED MUCH ORAL INTAKE AND EXPRESSED REFUSAL OF ALL FOOD THROUGHOUT THE DAY. STATED "IM NOT HUNGRY". PT REPORTS FEELING WEAK AND TIRED THROUGHOUT THE DAY. PTS DAUGHTER AND SON-IN-LAW AT BEDSIDE TODAY. TALKED TO PALLIATIVE CARE TO GUIDE THE FAMILY IN A TREATMENT PLAN. PATIENT AND FAMILY ELECTED TO HOSPICE CARE. TELE REMOVED FROM PT AT 1745. POD 14 SIGMOID COLECTOMY C/D/I. MILD TENDERNESS UPON PALPITATION. STOMA REMAINS PINK AND BEEFY, PRODUCING SMALL AMOUNT LIQUID BROWN STOOL.
[2023-11-02 20:43] VITALS: BP 179/91
[2023-11-03 05:36] VITALS: BP 179/86
[2023-11-03 06:25] VITALS: BP 171/82
[2023-11-03 07:09] VITALS: BP 156/72
--- NOTE | 2023-11-03 07:29 | NUR ---
SHIFT SUMMARY NOC. PT S/P SIGMOID COLECTOMY WITH OSTOMY. PT A/O TO SELF AND TO PLACE AND SITUATION INTERMITTENTLY. PT MEDICATED FOR PAIN WITH REPORTED RELIEF OF SX. PT HAD INCONTINENT VOID. PT MEDICATED FOR HTN THIS SHIFT. PT RESTED WITH EYES CLOSED AND CALL LIGHT IN REACH.
--- NOTE | 2023-11-03 09:08 | NUR ---
COMFORT CARE DR. HANCOCK NOTIFIED OF PT COMPLAINGIN OF CHEST PAIN, NON RADIATING. DR. HANCOCK VERBALIZED THAT PT IS ON COMFORT CARE AND TO ADMINISTER ROXANOL PER ORDERS. CLARIFIED WITH PALLIATIVE CARE ON COMFORT CARE ORDERS. PALLIATIVE CARE TO COME DOWN TO SPEAK WITH DAUGHTER ABOUT COMFORT CARE TREATMENT PLAN.
[2023-11-03] MEDS ORDERED: Acetaminophen 325 MG Supp PR PRN (09:20)
--- NOTE | 2023-11-03 09:20 | NUR ---
UPDATED ORDERS TO REFLECT COMFORT CARE PER CONVERSATION WITH PROVIDER. CHANGED TYLENOL FROM PO TO [place]. D/C'D PO, NONCOMFORT MEDICATIONS PT IS NOT ABLE TO SAFELY SWALLOW AT THIS TIME. PRIMARY RN NOTIFIED OF CHANGES.
--- NOTE | 2023-11-03 14:16 | NUR ---
SUPPORTIVE VISIT PT IS A/O X3. MILLER VERBALIZED UNDERSTANDING SHE WILL BE ADMITTED TO HOSPICE AND IS GOING TO HER DTR'S HOUSE IN [facility] TOMORROW 11/04/23. THIS PC RN EDUCATED ON WHAT HOSPICE LOOKS LIKE AND THE SERVICES HOSPICE PROVIDES. PT'S DTR, PAULA VALADEZ'D PHONE CALL FROM ADMITTING HOSPICE SERVICE DURING THIS VISIT. CALL PLACED ON SPEAKER PHONE. THIS PC RN ADVISED, [facility] RN[facility] OF PT'S DME NEEDS AND THE IMPORTANCE OF SAME DAY ADMISSION. RENETTA ALVARADO CONFIRMED PT WILL BE ADMITTED TOMORROW 11/04/23 WHEN THE PT ARRIVES. DME TO BE DELIVERED TODAY @ 1700. RN CC IS COORDINATING WITH TRANSPORT ON MEDICATIONS AND DIRECTIONS TO KEEP PT COMFORTABLE DURING THE 7 PLUS HOUR TRANSPORT. PRIMARY RN UPDATED.
--- NOTE | 2023-11-03 16:26 | NUR ---
SHIFT SUMMARY COMFORT CARE ORDERS IN PLACE. REPOSITIONING Q2P AND FOR COMFORT. PUREWICK IN PLACE. COLOSTOMY WITH MINIMAL LIQ BROWN STOOL. INCISIONS AND DRESSINGS REMAIN UNCHANGED. ROXANOL PRN FOR COMFORT. CARE MANAGEMENT CONTINUING TO WORK ON HOSPICE DISCHARGE PLANNING SET FOR TOMORROW. FAMILY AT BEDSIDE FOR SUPPORT. CALL LIGHT WITHIN REACH.
[2023-11-03 19:58] VITALS: BP 175/86
--- NOTE | 2023-11-04 07:29 | NUR ---
SHIFT SUMMARY NOC. PT S/P SIGMOID COLECTOMY WITH OSTOMY. PT ON COMFORT CARE. PT ALERT TO PERSON AND SITUATION. PT MEDICATED FOR PAIN WITH REPORTED RELIEF OF SX. PT TO DISCHARGE THIS MORNING. POWERGLIDE REMOVED. PACE DRAINING TO GRAVITY WITH MINIMAL OUTPUT. PT RESTED WITH EYES CLOSED AND CALL LIGHT IN REACH.
--- NOTE | 2023-11-04 08:44 | NUR ---
DISCHARGE SUMMARY PT RESTING IN BED AT START OF SHIFT, ORAL CARE PROVIDED BY TRAM INSPECTOR, OSTOMY CHANGED OUT THIS AM AND NEW MIDLINE DRESSING PLACED, MODERATE SEROUS DRAINAGE WAS ON OLD DRESSING PRIOR TO REPLACEMENT, MEDICATED FOR PAIN JUST BEFORE DEPARTURE. PT PICKED UP BY EMS FOR TRANSPORT TO [facility] IN [facility].
== END 2023-11-04 08:29 | disposition hospice, home (50) | DRG 853 ==
LOC: ER 14:49 → ICUE 18:57 → SURS 18:57 → PCU 18:57 → ICUE 23:40 → PCU 10-25 15:55 → SURS 10-27 15:07
PROVIDERS: Emergency Medicine; Family Medicine; Internal Medicine Critical Care Medicine; Nurse Practitioner Acute Care; Student in an Organized Health Care Education/Training Program; Surgery; ADMIT Family Medicine
PROC: 0DBN0ZZ Excision of Sigmoid Colon, Open Approach (ICD-10-PCS; principal; 2023-10-19 15:15)
PROC: 5A1945Z Respiratory Ventilation, 24-96 Consecutive Hours (ICD-10-PCS; 2023-10-20)
PROC: 0BH17EZ Insertion of Endotracheal Airway into Trachea, Via Natural or Artificial Opening (ICD-10-PCS; 2023-10-20)
PROC: 3E033XZ Introduction of Vasopressor into Peripheral Vein, Percutaneous Approach (ICD-10-PCS; 2023-10-20)
PROC: 0DH67UZ Insertion of Feeding Device into Stomach, Via Natural or Artificial Opening (ICD-10-PCS; 2023-10-21)
PROC: 5A0935A Assistance with Respiratory Ventilation, Less than 24 Consecutive Hours, High Flow/Velocity Cannula (ICD-10-PCS; 2023-10-23)
PROC: 02HV33Z Insertion of Infusion Device into Superior Vena Cava, Percutaneous Approach (ICD-10-PCS; 2023-10-23)
PROC: 5A09357 Assistance with Respiratory Ventilation, Less than 24 Consecutive Hours, Continuous Positive Airway Pressure (ICD-10-PCS; 2023-10-24)
PROC: 0T9B70Z Drainage of Bladder with Drainage Device, Via Natural or Artificial Opening (ICD-10-PCS; 2023-10-27)
PROC: 3E03329 Introduction of Other Anti-infective into Peripheral Vein, Percutaneous Approach (ICD-10-PCS; 2023-10-28)
DX: A41.9 Sepsis, unspecified organism (principal); J95.821 Acute postprocedural respiratory failure; K63.1 Perforation of intestine (nontraumatic); K65.1 Peritoneal abscess; R65.21 Severe sepsis with septic shock; K65.8 Other peritonitis; N17.9 Acute kidney failure, unspecified; J98.11 Atelectasis; Z51.5 Encounter for palliative care; Z66 Do not resuscitate; N81.89 Other female genital prolapse; E83.39 Other disorders of phosphorus metabolism; I25.10 Atherosclerotic heart disease of native coronary artery without angina pectoris; I25.2 Old myocardial infarction; K21.9 Gastro-esophageal reflux disease without esophagitis; I10 Essential (primary) hypertension; F10.10 Alcohol abuse, uncomplicated; E78.5 Hyperlipidemia, unspecified; M81.0 Age-related osteoporosis without current pathological fracture; R33.9 Retention of urine, unspecified; E87.6 Hypokalemia; Z90.49 Acquired absence of other specified parts of digestive tract; Z95.5 Presence of coronary angioplasty implant and graft; Z87.891 Personal history of nicotine dependence; Z91.041 Radiographic dye allergy status; Z79.899 Other long term (current) drug therapy; Z87.440 Personal history of urinary (tract) infections; Z87.442 Personal history of urinary calculi
CPT/HCPCS: 31500; 31720; 36415; 70450; 71045; 74177; 80048; 80053; 80069; 81001; 82803; 82947; 83690; 83735; 84100; 84132; 84484; 85014; 85018; 85025; 87040; 87070; 87086; 87205; 88307; 93005; 93010; 93306; 94002; 94003; 94640; 94660; 94664; 94760; 94762; 96374-59; 96375-59; 97110; 97110-CQ; 97116-CQ; 97162; 97166; 97530; 97535; 99285-25; A9270; C1751; J0360; J1100; J1170; J1200; J1650; J1940; J2060; J2250; J2371; J2405; J2470; J2543; J2704; J2765; J3010; J3411; J3480; J7050; J7060; J7120; Q9967